=== PATIENT | female | born 1950 | race African-American/Black ===

== ENCOUNTER 2016-03-20 21:24 | Emergency (ER) | payer MEDICARE, OTHER ==
[2016-03-20] MEDS ORDERED: ASPIRIN 81 MG TABLET, CHEWABLE PO ONE (21:31)
[2016-03-20] MEDS ORDERED: DILTIAZEM HCL/D5W 125 MG/125 ML RTUINJ IV ONE (21:53)
[2016-03-20] MEDS ORDERED: DILTIAZEM HCL INJ 25 MG/5 ML VIAL ONE (21:54)
[2016-03-20] MEDS ORDERED: DILTIAZEM HCL INJ 25 MG/5 ML VIAL IV ONE (22:06)
[2016-03-20] MEDS ORDERED: DILTIAZEM HCL/D5W 125 ML IV PRN (22:06)
[2016-03-20 22:15] LABS: ABSOLUTE BASOPHILS # (AUTO) 0.1 10^3/uL (0.0-0.2); ABSOLUTE EOSINOPHILS # (AUTO) 0.2 10^3/uL (0.0-0.6); ABSOLUTE LYMPHOCYTES (AUTO) 2.8 10^3/uL (0.5-4.7); ABSOLUTE NEUT (AUTO) 6.3 10^3/uL (1.7-8.2); BASOPHILS % (AUTO) 0.7 % (0-2); HEMOGLOBIN 12.7 g/dL (12.0-15.5); HGB HCT DIFFERENCE -1.9; LYMPHOCYTES % (AUTO) 26.7 % (13-45); MEAN CORPUSCULAR HEMOGLOBIN 28.9 pg (27.0-33.4); MEAN CORPUSCULAR HGB CONC 31.7 g/dL (32.0-36.0); MEAN CORPUSCULAR VOLUME 91 fl (80-97); MONOCYTES % (AUTO) 9.7 % (3-13); RED BLOOD COUNT 4.39 10^6/uL (3.72-5.28); RED CELL DISTRIBUTION WIDTH 15.6 % (11.5-14.0); SEGMENTED NEUTROPHILS % (AUTO) 60.9 % (42-78); WHITE BLOOD COUNT 10.4 10^3/uL (4.0-10.5)
[2016-03-20 23:06] LABS: PROTHROMBIN TIME 16.2 SEC (11.4-15.4)
[2016-03-20 23:07] LABS: PARTIAL THROMBOPLASTIN TIME 50.6 SEC (23.5-35.8)
[2016-03-20] MEDS ORDERED: METHYLPREDNISOLONE INJ 125 MG/2 ML SDV IV ONE (23:17)
[2016-03-20] MEDS ORDERED: DIPHENHYDRAMINE HCL 50 MG/ML VIAL IV ONE (23:17)
[2016-03-20] MEDS ORDERED: FAMOTIDINE INJ/PF 20 MG/2 ML SDV IV ONE (23:17)
[2016-03-20 23:26] LABS: ALANINE AMINOTRANSFERASE 19 U/L (9-52); ALBUMIN 4.1 g/dL (3.5-5.0); ALKALINE PHOSPHATASE 93 U/L (38-126); ANION GAP 14 (5-19); ASPARTATE AMINO TRANSFERASE 16 U/L (14-36); BILIRUBIN,TOTAL 0.5 mg/dL (0.2-1.3); BLOOD UREA NITROGEN 29 mg/dL (7-20); CALCIUM 9.9 mg/dL (8.4-10.2); CARBON DIOXIDE 23 mmol/L (22-30); CHLORIDE 110 mmol/L (98-107); CREATINE KINASE 115 U/L (30-135); CREATININE RESULT 1.15 mg/dL (0.52-1.25); GLUCOSE 111 mg/dL (75-110); MAGNESIUM 2.1 mg/dL (1.6-2.3); POTASSIUM 3.7 mmol/L (3.6-5.0); SODIUM 147.3 mmol/L (137-145); TOTAL PROTEIN 7.2 g/dL (6.3-8.2)
[2016-03-20 23:34] LABS: CREATINE KINASE MB 0.87 ng/mL (<4.55)
[2016-03-20 23:35] LABS: TROPONIN I < 0.012 ng/mL
--- NOTE | 2016-03-21 00:39 | ER Document Report ---
ED General - General TRAVEL OUTSIDE OF THE [place] IN LAST 30 DAYS: No - HPI Patient complains to provider of: chest pressure pain palpitation <JAYDON LIZ - Last Filed: 03/21/16 01:04> <BOAZ POON - Last Filed: 03/21/16 05:59> - General Chief Complaint: Chest Pressure Stated Complaint: CHEST PAIN - HPI Notes: Patient coming in for evaluation of chest pressure pain palpitations. Patient states started earlier this evening patient states she has been compliant with her medications. Is on metoprolol for her history of A. fib and also improved access for anticoagulation. Patient denies any trauma. Patient has a history of thoracic aortic aneurysm with dissection with endovascular repair in 2013 at [facility]. Patient denies any trauma nausea vomiting fevers chills cough. Patient states chest pressure is worse with ambulation (JAYDON LIZ) - Related Data Allergies/Adverse Reactions: iodine [Iodine] Allergy (Verified 03/20/16 22:40) Past Medical History - Social History Smoking Status: Unknown if Ever Smoked Family History: None - Past Medical History Cardiac Medical History: Reports: Hx Atrial Fibrillation, Hx Hypercholesterolemia, Hx Hypertension Psychiatric Medical History: Reports: Hx Depression Past Surgical History: Reports: Hx Appendectomy, Hx Cardiac Surgery - aorta repair, Hx Hysterectomy, Hx Neurologic Surgery - Right-sided craniotomy for cerebral aneurysm 4 years ago at [facility], Hx Orthopedic Surgery - Right ulnar nerve repair at the elbow, Hx Tubal Ligation, Hx Vascular Surgery - Right temporal craniotomy for cerebral aneurysm at [facility] 4 years ago - Immunizations Hx Diphtheria, Pertussis, Tetanus Vaccination: Yes Hx Pneumococcal Vaccination: 12/27/12 <JAYDON LIZ - Last Filed: 03/21/16 01:04> Review of Systems - Review of Systems Constitutional: No symptoms reported EENT: No symptoms reported Cardiovascular: Chest pain, Palpitations Respiratory: No symptoms reported Gastrointestinal: No symptoms reported Genitourinary: No symptoms reported Female Genitourinary: No symptoms reported Musculoskeletal: No symptoms reported Skin: No symptoms reported Hematologic/Lymphatic: No symptoms reported Neurological/Psychological: No symptoms reported -: Yes All other systems reviewed and negative <JAYDON LIZ - Last Filed: 03/21/16 01:04> Physical Exam - Vital signs Interpretation: Tachycardic - General General appearance: Appears well, Alert - HEENT Head: Normocephalic, Atraumatic Eyes: Normal Pupils: PERRL - Respiratory Respiratory status: No respiratory distress Chest status: Tender - Patient with a keloid scar from previous sternotomy tender to palpation no signs of infection. Breath sounds: Normal Chest palpation: Normal - Cardiovascular Rhythm: Irregularly irregular, Tachycardia Heart sounds: Normal auscultation Murmur: No - Abdominal Inspection: Normal Distension: No distension Bowel sounds: Normal Tenderness: Nontender Organomegaly: No organomegaly - Back Back: Normal, Nontender - Extremities General upper extremity: Normal inspection, Nontender, Normal color, Normal ROM , Normal temperature General lower extremity: Normal inspection, Nontender, Normal color, Normal ROM , Normal temperature, Normal weight bearing. No: Shital's sign - Neurological Neuro grossly intact: Yes Cognition: Normal Orientation: AAOx4 Simona Coma Scale Eye Opening: Spontaneous Fisher Coma Scale Verbal: Oriented Simona Coma Scale Motor: Obeys Commands Simona Coma Scale Total: 15 Speech: Normal Motor strength normal: LUE, RUE, LLE, RLE Sensory: Normal - Psychological Associated symptoms: Normal affect, Normal mood - Skin Skin Temperature: Warm Skin Moisture: Dry Skin Color: Normal <JAYDON LIZ - Last Filed: 03/21/16 01:04> Course - Laboratory Result Diagrams: 03/20/16 21:57 03/20/16 22:30 <JAYDON LIZ - Last Filed: 03/21/16 01:04> - Laboratory Result Diagrams: 03/20/16 21:57 03/20/16 22:30 <BOAZ POON DOROTHY - Last Filed: 03/21/16 05:59> - Re-evaluation Re-evalutation: 03/21/16 00:37 Patient with a mass seen her chest x-ray. 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 I did contact the [facility] transfer team. Patient's lab work does shows some hypernatremia more likely from dehydration. Patient was placed on Cardizem drip with improvement of her A. fib with RVR. Currently waiting operational intelligence officer from [facility]. Otherwise hemodynamics stable at this time. 03/21/16 00:41 Discussed with cardiothoracic surgery at [facility] states this is a vascular surgery issue waiting for vascular surgery consult 03/21/16 01:04 Discussed with fast with surgery at this time do not think that this is a vascular issue but will evaluate the patient in the ER. Discussed with ER attending Dr. Cervantes who accepted the patient to [facility] ER. (JAYDON LIZ) 03/21/16 05:58 Symptoms care of patient at 01:15 Patient is resting comfortably at this time. Vitals are stable. Patient is still awaiting transport to [facility]. There are no ambulances available at this time. Care transferred to Dr. Newman at 0600. (BOAZ POON) - Vital Signs Vital signs: Temp Pulse Resp BP Pulse Ox 18 126/80 H 93 03/21/16 03:04 03/21/16 03:04 03/21/16 03:04 (JAYDON LIZ) (BOAZ POON) - Laboratory Laboratory results interpreted by me: 03/20/16 03/20/16 03/20/16 21:57 21:57 22:30 MCHC 31.7 L RDW 15.6 H PT 16.2 H APTT 50.6 H Sodium 147.3 H Chloride 110 H BUN 29 H Est GFR ( Amer) 57 L Est GFR (Non-Af Amer) 47 L Glucose 111 H (JAYDON LIZ) (BOAZ POON) Critical Care Note - Critical Care Note Total time excluding time spent on procedures (mins): 50 <JAYDON LIZ - Last Filed: 03/21/16 01:04> <BOAZ POON - Last Filed: 03/21/16 05:59> - Critical Care Note Comments: Multiple evaluations for patient with A. fib RVR with a pseudoaneurysm of the thoracic aorta (JAYDON LIZ) Discharge <JAYDON LIZ - Last Filed: 03/21/16 01:04> <BOAZ POON - Last Filed: 03/21/16 05:59> - Discharge Clinical Impression: Atrial fibrillation with RVR, pseudoaneurysm thoracic aorta Disposition: [facility]BLY Referrals: CLAUDIA LUONG MD [Primary Care Provider] - Follow up as needed
--- NOTE | 2016-03-21 08:30 | ER Document Report ---
Doctor's Note Notes: 03/21/16 08:30 Transport is here to take the patient to [facility]. Her vital signs have been stable and she has no complaints at this time.
[2016-03-21 08:33] VITALS: BP 149/76
--- NOTE | 2016-03-21 10:55 | EKG REPORT ---
SEVERITY:- ABNORMAL ECG - ATRIAL FIBRILLATION WITH RAPID V-RATE 150 BPM PROBABLE LVH WITH SECONDARY REPOL ABNRM : Confirmed by: Tono Mcdonough MD 21-Mar-2016 10:54:26
== END 2016-03-21 08:35 | disposition short-term general hospital (02) ==
LOC: ER 21:24
DX: I71.2 Thoracic aortic aneurysm, without rupture (principal); R07.9 Chest pain, unspecified; I48.91 Unspecified atrial fibrillation; E78.00 Pure hypercholesterolemia, unspecified; I10 Essential (primary) hypertension; Z90.710 Acquired absence of both cervix and uterus; Z98.51 Tubal ligation status
CPT/HCPCS: 93005; 99291; 96375; 96365; 96366; 36415; 82553; 82550; 83735; 85025; 85610; 85730; 80053; 84484; 71020; 71275; 74174; 93010; J1200; J3490 ×2; J2930; S0028

== ENCOUNTER 2016-05-14 01:17 | Emergency (ER) | payer MEDICARE, OTHER ==
[2016-05-14] MEDS ORDERED: DILTIAZEM HCL INJ 25 MG/5 ML VIAL IV ONE (01:56)
--- NOTE | 2016-05-14 01:58 | ER Document Report ---
ED General - General Chief Complaint: A-Fib Stated Complaint: CHEST PAIN Time seen by provider: 01:38 Mode of Arrival: Ambulatory Information source: Patient TRAVEL OUTSIDE OF THE [place] IN LAST 30 DAYS: No - HPI Notes: Patient has a long-standing history of atrial fibrillation and a previous history of a thoracic aortic dissection with endovascular repair in 2013 at [facility]. 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 Patient was sent back to [facility], and they decided upon medical management with blood pressure medications with possible surgery in another 6 months. Patient presents now with report of her recurrence of her atrial fibrillation at about 2300 this evening with typical palpitation sensation with mild chest pain. She denies any nausea or dyspnea. She arrives with a slightly elevated blood pressure ambulatory. Patient states that she ran out of her metoprolol, and has not had a dose since yesterday. She thinks she was taking 100 mg by mouth twice a day. She did not bring the medication in with her. Patient reports her thyroid levels were checked recently and were normal. - Related Data Allergies/Adverse Reactions: iodine [Iodine] Allergy (Verified 03/21/16 07:50) Past Medical History - Social History Smoking Status: Former Smoker Family History: None Patient has suicidal ideation: No Patient has homicidal ideation: No - Past Medical History Cardiac Medical History: Reports: Hx Atrial Fibrillation, Hx Hypercholesterolemia, Hx Hypertension Renal/ Medical History: Denies: Hx Peritoneal Dialysis Psychiatric Medical History: Reports: Hx Depression Past Surgical History: Reports: Hx Appendectomy, Hx Cardiac Surgery - aorta repair, Hx Hysterectomy, Hx Neurologic Surgery - Right-sided craniotomy for cerebral aneurysm 4 years ago at [facility], Hx Orthopedic Surgery - Right ulnar nerve repair at the elbow, Hx Tubal Ligation, Hx Vascular Surgery - Right temporal craniotomy for cerebral aneurysm at [facility] 4 years ago - Immunizations Hx Diphtheria, Pertussis, Tetanus Vaccination: Yes Hx Pneumococcal Vaccination: 12/27/12 Review of Systems - Review of Systems Notes: REVIEW OF SYSTEMS: CONSTITUTIONAL : Denies fever, chills, or sweats. Denies recent illness. EENT: Denies eye, ear, throat, or mouth pain or symptoms. Denies nasal or sinus congestion or discharge. Denies throat, tongue, or mouth swelling or difficulty swallowing. CARDIOVASCULAR: Denies ankle edema. RESPIRATORY: Denies cough, cold, or chest congestion. Denies shortness of breath, difficulty breathing, or wheezing. GASTROINTESTINAL: Denies abdominal pain or distention. Denies nausea, vomiting , or diarrhea. Denies blood in vomitus, stools, or per rectum. Denies black, tarry stools. Denies constipation. GENITOURINARY: Denies difficulty urinating, painful urination, burning, frequency, blood in urine, or discharge. FEMALE GENITOURINARY: Denies vaginal bleeding, heavy or abnormal periods, irregular periods. Denies vaginal discharge or odor. MUSCULOSKELETAL: Denies back or neck pain or stiffness. Denies joint pain or swelling. SKIN: Denies rash, lesions or sores. HEMATOLOGIC : Denies easy bruising or bleeding. LYMPHATIC: Denies swollen, enlarged glands. NEUROLOGICAL: Denies confusion or altered mental status. Denies passing out or loss of consciousness. Denies dizziness or lightheadedness. Denies headache. Denies weakness or paralysis or loss of use of either side. Denies problems with gait or speech. Denies sensory loss, numbness, or tingling. Denies seizures. PSYCHIATRIC: Denies anxiety or stress. Denies depression, suicidal ideation, or homicidal ideation. ALL OTHER SYSTEMS REVIEWED AND NEGATIVE. Dictation was performed using [employer] voice recognition software Physical Exam - Vital signs Vitals: Temp Pulse Resp BP Pulse Ox 97.8 F 143 H 16 151/90 H 95 05/14/16 01:27 05/14/16 01:27 05/14/16 01:27 05/14/16 01:27 05/14/16 01:27 - Notes Notes: PHYSICAL EXAMINATION: GENERAL: Well-appearing, well-nourished and in no acute distress. HEAD: Atraumatic, normocephalic. EYES: Pupils equal round and reactive to light, extraocular movements intact, conjunctiva are normal. ENT: Nares patent, oropharynx clear without exudates. Moist mucous membranes. NECK: Normal range of motion, supple without lymphadenopathy LUNGS: Breath sounds clear to auscultation bilaterally and equal. No wheezes rales or rhonchi. HEART: Tachycardic rate of 146 slightly irregular with atrial fibrillation noted on the monitor. There is a 1/6 systolic ejection murmur best auscultated over the apex. No appreciable gallop or rub. ABDOMEN: Soft, nontender, nondistended abdomen. No guarding, no rebound. No masses appreciated. Female : deferred Musculoskeletal: Normal range of motion, no pitting or edema. No cyanosis. NEUROLOGICAL: Cranial nerves grossly intact. Normal speech, normal gait. Normal sensory, motor exams PSYCH: Normal mood, normal affect. SKIN: Warm, Dry, normal turgor, no rashes or lesions noted. Course - Re-evaluation Re-evalutation: 05/14/16 05:14 Patient was given diltiazem 20 mg IV. Her heart rate came down briefly but she remained in atrial fibrillation. Blood pressure remained stable. After this, the patient was given diltiazem drip at 10 mg IV per hour and was given her usual dose of metoprolol 100 mg by mouth. Within 30 minutes, the patient resumed back into normal sinus rhythm with a heart rate 60s to 80s and a stable blood pressure. The diltiazem was discontinued. The patient was watched for an additional 2 hours and had no sensation of palpitations or chest pain whatsoever. Repeat EKG performed at 0 4:53 AM as interpreted by Dr. Smalls showed normal sinus rhythm heart rate of 65. There is no gross evidence for acute IA or ischemia. There was resolution of the previously noted atrial fibrillation. Patient was ambulatory without complaint. No evidence for CHF, cardiac ischemia, electrolyte imbalance, anemia. We will refill the patient's dose of metoprolol, and she now states she takes a total of 100 mg a day but thinks it's broken up in the 2 x 50 mg tablets taken twice a day. 05/14/16 05:21 - Vital Signs Vital signs: Temp Pulse Resp BP Pulse Ox 97.8 F 143 H 17 124/67 100 05/14/16 01:27 05/14/16 01:27 05/14/16 05:00 05/14/16 04:56 05/14/16 05:00 - Laboratory Result Diagrams: 05/14/16 01:47 05/14/16 01:47 Laboratory results interpreted by me: 05/14/16 05/14/16 05/14/16 01:47 01:47 01:47 RDW 16.5 H PT 19.4 H Sodium 148.7 H Chloride 110 H BUN 24 H Est GFR (Non-Af Amer) 52 L Glucose 113 H AST 52 H Total Protein 8.3 H - Diagnostic Test Radiology reviewed: Reports reviewed - EKG Interpretation by Me Additional EKG results interpreted by me: 05/14/16 02:03 Initial EKG performed at 0 123 as interpreted by me showed atrial flutter with a 2-1 block rate of 142. There is 1 isolated PVC noted on the rhythm strip. There was no gross evidence for acute IA or ischemia, with rate-related ST segment changes noted. This EKG was not significantly changed from previous EKG were reviewed and old record from 03/20/16. Critical Care Note - Critical Care Note Total time excluding time spent on procedures (mins): 35 Discharge - Discharge Clinical Impression: Atrial fibrillation with RVR Chest pain Qualifiers: Chest pain type: unspecified Qualified Code(s): R07.9 - Chest pain, unspecified Condition: Stable Disposition: HOME, SELF-CARE Additional Instructions: Atrial Fibrillation Atrial fibrillation is an abnormal heart rhythm, caused by irregular electrical circuits in the upper heart chamber. It can be caused by heart valve disease, hardening of the arteries, or metabolic problems such as thyroid disease, or may occur without a clear cause. Atrial fibrillation may occur only occasionally, or may be chronic. Atrial fibrillation often results in a very fast heart rate, with palpitations, lightheadedness, and shortness of breath. Treatment is to slow the abnormally fast rate, and to convert the rhythm back to normal, if possible. Many patients stay in atrial fibrillation for years without symptoms or complications. Your doctor will decide whether you can be converted back to a normal heart rhythm. Contact the doctor or emergency medical system at once if you develop chest pain, shortness of breath, or severe lightheadedness, or if you develop any disturbance of consciousness, problems with speech, or localized weakness. Take your metoprolol regularly as instructed. Return to the emergency Department in case of chest pain or difficulty breathing or rapid heart rate. Prescriptions: Metoprolol Tartrate [Lopressor 50 mg Tablet] 50 mg PO Q12H #60 tablet
[2016-05-14 02:18] LABS: ABSOLUTE EOSINOPHILS # (AUTO) 0.3 10^3/uL (0.0-0.6); ABSOLUTE LYMPHOCYTES (AUTO) 1.7 10^3/uL (0.5-4.7); ABSOLUTE NEUT (AUTO) 7.1 10^3/uL (1.7-8.2); BASOPHILS % (AUTO) 0.5 % (0-2); HEMATOCRIT 40.5 % (36.0-47.0); HEMOGLOBIN 13.5 g/dL (12.0-15.5); LYMPHOCYTES % (AUTO) 16.8 % (13-45); MEAN CORPUSCULAR HEMOGLOBIN 30.1 pg (27.0-33.4); MEAN CORPUSCULAR HGB CONC 33.3 g/dL (32.0-36.0); MEAN CORPUSCULAR VOLUME 90 fl (80-97); MONOCYTES % (AUTO) 10.2 % (3-13); RED BLOOD COUNT 4.48 10^6/uL (3.72-5.28); RED CELL DISTRIBUTION WIDTH 16.5 % (11.5-14.0); SEGMENTED NEUTROPHILS % (AUTO) 69.5 % (42-78); WHITE BLOOD COUNT 10.3 10^3/uL (4.0-10.5)
[2016-05-14] MEDS ORDERED: METOPROLOL TARTRATE 100 MG TABLET PO ONE (02:19)
[2016-05-14] MEDS ORDERED: DILTIAZEM HCL/D5W 125 ML IV PRN (02:20)
[2016-05-14 02:23] LABS: ALANINE AMINOTRANSFERASE 39 U/L (9-52); ALBUMIN 4.4 g/dL (3.5-5.0); ALKALINE PHOSPHATASE 107 U/L (38-126); ANION GAP 13 (5-19); ASPARTATE AMINO TRANSFERASE 52 U/L (14-36); BILIRUBIN,TOTAL 0.7 mg/dL (0.2-1.3); BLOOD UREA NITROGEN 24 mg/dL (7-20); CALCIUM 9.9 mg/dL (8.4-10.2); CARBON DIOXIDE 26 mmol/L (22-30); CHLORIDE 110 mmol/L (98-107); CREATININE RESULT 1.05 mg/dL (0.52-1.25); GLUCOSE 113 mg/dL (75-110); MAGNESIUM 2.1 mg/dL (1.6-2.3); POTASSIUM 3.6 mmol/L (3.6-5.0); SODIUM 148.7 mmol/L (137-145); TOTAL PROTEIN 8.3 g/dL (6.3-8.2)
[2016-05-14 02:29] LABS: PROTHROMBIN TIME 19.4 SEC (11.4-15.4)
[2016-05-14 07:23] VITALS: BP 114/68
--- NOTE | 2016-05-14 11:12 | EKG REPORT ---
SEVERITY:- ABNORMAL ECG - SINUS RHYTHM FIRST DEGREE AV BLOCK PROBABLE LEFT ATRIAL ABNORMALITY PROBABLE LEFT VENTRICULAR HYPERTROPHY BORDERLINE T ABNORMALITIES, INFERIOR LEADS BORDERLINE PROLONGED QT INTERVAL : Confirmed by: Forrest Chapman 14-May-2016 11:11:40
--- NOTE | 2016-05-14 11:12 | EKG REPORT ---
SEVERITY:- ABNORMAL ECG - A-FLUTTER W/ PREDOM 2:1 AV BLOCK, A-RATE 277 VENTRICULAR PREMATURE COMPLEX CONSIDER LEFT VENTRICULAR HYPERTROPHY REPOL ABNRM SUGGESTS ISCHEMIA, DIFFUSE LEADS PROLONGED QT INTERVAL : Confirmed by: Forrest Chapman 14-May-2016 11:11:48
== END 2016-05-14 07:23 | disposition home or self-care (01) ==
LOC: ER 01:17
DX: I48.91 Unspecified atrial fibrillation (principal); R07.9 Chest pain, unspecified; E78.00 Pure hypercholesterolemia, unspecified; I10 Essential (primary) hypertension; I71.2 Thoracic aortic aneurysm, without rupture; Z87.891 Personal history of nicotine dependence
CPT/HCPCS: 93005; 96376; 99291; 96365; 36415; 83735; 85025; 85610; 80053; 84484; 71010; 93010; J3490 ×2; A9270

== ENCOUNTER 2016-09-06 01:49 | Emergency (ER) | payer MEDICARE, OTHER ==
[2016-09-06] MEDS ORDERED: ASPIRIN 81 MG TABLET, CHEWABLE PO ONE (03:06)
--- NOTE | 2016-09-06 03:12 | ER Document Report ---
ED Cardiac <FELIPA SAMUELS - Last Filed: 09/06/16 09:58> - General Mode of Arrival: Ambulatory Information source: Patient TRAVEL OUTSIDE OF THE [place] IN LAST 30 DAYS: No - HPI Patient complains to provider of: Chest pain - Like someone standing on her Was the onset of pain: Sudden Is the pain a: Chronic problem - Patient states she has atrial fib but this pain is different than her normal pain from felt like someone was standing on her chest Quality of pain: Pressure, Radiating - Bilateral arms, Tingling - Bilateral arms Chest pain radiation location: Left arm, Right arm Severity now: Moderate Severity at worst: Mild Pain level currently: 2 Cardiac risk factors: Hypertension, Dyslipidemia Positive cardiac history: Yes Associated symptoms: Dizziness, Nausea/vomiting Exacerbated by: Denies Relieved by: Nothing Similar symptoms previously: Yes Recently seen / treated by doctor: Yes <BLANCHE STEVENS - Last Filed: 09/06/16 19:21> - General Chief Complaint: Chest Pain Stated Complaint: CHEST PAIN Time Seen by Provider: 09/06/16 02:52 Notes: Presents to ED for chest pain times about 2 hours. She states that she has a history of atrial fib but this did not feel like her normal atrial fib. She said it felt like someone was standing on her chest. She states the pain is much better now it is down to a 2 but she still having some pain. States she has also had some dizziness and nausea but no vomiting. 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 (BLANCHE STEVENS) - Related Data Allergies/Adverse Reactions: iodine [Iodine] Allergy (Verified 03/21/16 07:50) Past Medical History - General Information source: Patient - Social History Smoking Status: Current Every Day Smoker Cigarette use (# per day): Yes - 2-3 per day Chew tobacco use (# tins/day): No Smoking Education Provided: Yes - less than 2 min Frequency of alcohol use: None Drug Abuse: None Occupation: retired Lives with: Family - grandson Family History: Reviewed & Not Pertinent Patient has suicidal ideation: No Patient has homicidal ideation: No - Past Medical History Cardiac Medical History: Reports: Hx Atrial Fibrillation, Hx Hypercholesterolemia, Hx Hypertension, Other - aortic aneurysm with repair Pulmonary Medical History: Reports: Hx Bronchitis EENT Medical History: Reports: None Neurological Medical History: Reports: Hx Cerebrovascular Accident - cerebral aneurysm Endocrine Medical History: Reports: None Renal/ Medical History: Reports: None Malignancy Medical History: Reports: None GI Medical History: Reports: None Musculoskeltal Medical History: Reports Hx Musculoskeletal Deformity Skin Medical History: Reports None Psychiatric Medical History: Reports: Hx Depression Traumatic Medical History: Reports: None Infectious Medical History: Reports: None Past Surgical History: Reports: Hx Appendectomy, Hx Cardiac Surgery - aorta repair, Hx Hysterectomy, Hx Neurologic Surgery - Right-sided craniotomy for cerebral aneurysm 4 years ago at [facility], Hx Orthopedic Surgery - Right ulnar nerve repair at the elbow, Hx Tubal Ligation, Hx Vascular Surgery - Right temporal craniotomy for cerebral aneurysm at [facility] 4 years ago - Immunizations Immunizations up to date: Yes Hx Diphtheria, Pertussis, Tetanus Vaccination: Yes History of Influenza Vaccine for 11/2015 - 04/2016 Season: Yes Hx Pneumococcal Vaccination: 12/27/12 <BLANCHE STEVENS - Last Filed: 09/06/16 19:21> Review of Systems - Review of Systems Constitutional: No symptoms reported EENT: No symptoms reported Cardiovascular: Chest pain, Dizziness Respiratory: No symptoms reported Gastrointestinal: Nausea Genitourinary: No symptoms reported Female Genitourinary: No symptoms reported Musculoskeletal: No symptoms reported Skin: No symptoms reported Hematologic/Lymphatic: No symptoms reported Neurological/Psychological: No symptoms reported <BLANCHE STEVENS - Last Filed: 09/06/16 19:21> Physical Exam - Vital signs Interpretation: Normal - General General appearance: Appears well, Alert - HEENT Head: Normocephalic, Atraumatic Eyes: Normal Pupils: PERRL - Respiratory Respiratory status: No respiratory distress Chest status: Tender - to area around chest surgery scars from aneursym repair Breath sounds: Normal Chest palpation: Normal - Cardiovascular Rhythm: Regular Heart sounds: Normal auscultation Murmur: No - Abdominal Inspection: Normal Distension: No distension Bowel sounds: Normal Tenderness: Tender - upper abdomen Organomegaly: No organomegaly - Back Back: Normal, Nontender - Extremities General upper extremity: Normal inspection, Nontender, Normal color, Normal ROM , Normal temperature General lower extremity: Normal inspection, Nontender, Normal color, Normal ROM , Normal temperature, Normal weight bearing. No: Shital's sign - Neurological Neuro grossly intact: Yes Cognition: Normal Orientation: AAOx4 [place] Coma Scale Eye Opening: Spontaneous [place] Coma Scale Verbal: Oriented [place] Coma Scale Motor: Obeys Commands [place] Coma Scale Total: 15 Speech: Normal Motor strength normal: LUE, RUE, LLE, RLE Sensory: Normal - Psychological Associated symptoms: Normal affect, Normal mood - Skin Skin Temperature: Warm Skin Moisture: Dry Skin Color: Normal <BLANCHE STEVENS - Last Filed: 09/06/16 19:21> - Vital signs Vitals: Temp Pulse Resp BP Pulse Ox 98.1 F 80 16 154/106 H 96 09/06/16 02:04 09/06/16 02:04 09/06/16 02:04 09/06/16 02:04 09/06/16 02:04 Course - Laboratory Result Diagrams: 09/06/16 03:30 09/06/16 03:30 - Diagnostic Test Radiology reviewed: Reports reviewed <FELIPA SAMUELS - Last Filed: 09/06/16 09:58> - Laboratory Result Diagrams: 09/06/16 03:30 09/06/16 03:30 - Diagnostic Test Radiology reviewed: Image reviewed, Reports reviewed <BLANCHE STEVENS - Last Filed: 09/06/16 19:21> - Re-evaluation Re-evalutation: 09/06/16 09:59 Patient resting with eyes closed, arouses easily to voice. Patient states that her pain symptoms are resolved at this time. Patient blood pressure is improving after her morning doses of her medications were given. Patient advised that she will be discharged and that she needs to keep her appointment tomorrow in [place] with her doctor. Discussed worsening signs or symptoms that patient should return immediately for. Patient verbalized understanding and agrees with plan of care. Patient advised that her morning dose of her blood pressure medications were given in that she will only need to take her evening dose at home. (FELIPA SAMUELS) 09/06/16 07:[address] Newman when all the labs and x-rays were resulted he stated he would prefer her have a 1 more troponin at 830 before she was discharged if this is negative she can go home to follow-up with [place] tomorrow as he is scheduled. 09/06/16 08:13 Given to Rosemary Samuels FRAME [employer]IMMER, (BLANCHE STEVENS) - Vital Signs Vital signs: Temp Pulse Resp BP Pulse Ox 98.1 F 80 12 171/88 H 97 09/06/16 02:04 09/06/16 02:04 09/06/16 10:01 09/06/16 10:01 09/06/16 10:00 - Laboratory Laboratory results interpreted by me: 09/06/16 09/06/16 09/06/16 03:30 03:30 03:30 MCHC 31.4 L RDW 14.8 H PT 16.6 H APTT 65.6 H Potassium 3.1 L Est GFR ( Amer) 59 L Est GFR (Non-Af Amer) 49 L AST 93 H ALT 86 H 09/06/16 10:00 (FELIPA SAMUELS) Discharge <FELIPA SAMUELS - Last Filed: 09/06/16 09:58> <BLANCHE STEVENS - Last Filed: 09/06/16 19:21> - Discharge Clinical Impression: Hypokalemia Chest pain Qualifiers: Chest pain type: unspecified Qualified Code(s): R07.9 - Chest pain, unspecified Hypertension Qualifiers: Hypertension type: unspecified Qualified Code(s): I10 - Essential (primary) hypertension Condition: Stable Disposition: HOME, SELF-CARE Instructions: Chest Pain of Unclear Cause ([facility]), Hypokalemia ([facility]) Additional Instructions: You were given your morning dose of your blood pressure medications here. Return immediately for any new or worsening symptoms Followup with your primary care provider, call tomorrow to make a followup appointment Your potassium level was low today, increase foods rich in potassium in your diet. Have your primary care provider recheck your electrolytes this week. CHEST PAIN OF UNCLEAR CAUSE: The exact cause of your chest pain isn't clear. Fortunately, there is no evidence of a dangerous medical condition. Further testing may be required to find the source of the pain. Most often, we find that this pain is coming from the chest wall -- the muscles or rib joints in the chest. But chest pain can come from the lung and lung lining, the esophagus, the heart valves or heart lining, and even the stomach or gallbladder. Rest. Eat lightly until the pain is gone. We may prescribe medicine for pain and inflammation. You should call the physician immediately if the pain radiates to the shoulder, jaw or arms; if you start to run a fever or develop a cough; or if you develop shortness of breath, or other new or alarming symptoms. NORMAL EXAM AND WORKUP: At this time, your examination and workup show no significant abnormality. No significant abnormal physical findings were noted. All laboratory, EKG, and imaging (x-ray, CT scans, ultrasound) studies that were ordered show no significant abnormality. Although your examination and all studies that were ordered showed no significant abnormal finding, there are no examinations and no studies that are 100% accurate. There is always the possibility that some abnormality could exist and not be detected with physical examination or within the limits and capabilities of laboratory and other studies. You should return or follow up as you were instructed on your visit today for further evaluation if your symptoms do not resolve. ASPIRIN: Aspirin has been shown to have a beneficial effect on blood circulation by reducing the clotting effect of platelets in the blood. These beneficial effects can be achieved by taking just a single baby (81 mg) aspirin a day. It is recommended that any person over the age of forty take a single baby aspirin every day for heart and brain circulation, unless you are allergic to aspirin or have some significant bleeding disorder. It is strongly recommended that people who have proven cardiac or blood circulation disturbances should take a baby aspirin every day. FOLLOW-UP CARE: If you have been referred to a physician for follow-up care, call the physician s office for an appointment as you were instructed or within the next two days. If you experience worsening or a significant change in your symptoms, notify the physician immediately or return to the Emergency Department at any time for re-evaluation. Follow-up with your doctor in [place] tomorrow as scheduled. Return to the ED for any chest pain between now and your scheduled appointment. Forms: Elevated Blood Pressure Referrals: CLAUDIA LUONG MD [Primary Care Provider] - Follow up as needed
[2016-09-06 03:39] LABS: ABSOLUTE BASOPHILS # (AUTO) 0.1 10^3/uL (0.0-0.2); ABSOLUTE EOSINOPHILS # (AUTO) 0.1 10^3/uL (0.0-0.6); ABSOLUTE LYMPHOCYTES (AUTO) 1.8 10^3/uL (0.5-4.7); ABSOLUTE MONOCYTES (AUTO) 0.6 10^3/uL (0.1-1.4); ABSOLUTE NEUT (AUTO) 4.7 10^3/uL (1.7-8.2); BASOPHILS % (AUTO) 1.1 % (0-2); EOSINOPHILS % (AUTO) 1.5 % (0-6); HEMATOCRIT 41.8 % (36.0-47.0); HEMOGLOBIN 13.1 g/dL (12.0-15.5); HGB HCT DIFFERENCE -2.5; LYMPHOCYTES % (AUTO) 24.6 % (13-45); MEAN CORPUSCULAR HEMOGLOBIN 29.1 pg (27.0-33.4); MEAN CORPUSCULAR HGB CONC 31.4 g/dL (32.0-36.0); MEAN CORPUSCULAR VOLUME 93 fl (80-97); MONOCYTES % (AUTO) 8.1 % (3-13); RED CELL DISTRIBUTION WIDTH 14.8 % (11.5-14.0); SEGMENTED NEUTROPHILS % (AUTO) 64.7 % (42-78); WHITE BLOOD COUNT 7.2 10^3/uL (4.0-10.5)
[2016-09-06 03:56] LABS: PROTHROMBIN TIME 16.6 SEC (11.4-15.4)
[2016-09-06 03:57] LABS: PARTIAL THROMBOPLASTIN TIME 65.6 SEC (23.5-35.8)
[2016-09-06 04:11] LABS: ALANINE AMINOTRANSFERASE 86 U/L (9-52); ALBUMIN 4.1 g/dL (3.5-5.0); ALKALINE PHOSPHATASE 120 U/L (38-126); ANION GAP 11 (5-19); ASPARTATE AMINO TRANSFERASE 93 U/L (14-36); BILIRUBIN,DIRECT 0.3 mg/dL (0.0-0.4); BILIRUBIN,TOTAL 0.5 mg/dL (0.2-1.3); BLOOD UREA NITROGEN 17 mg/dL (7-20); CALCIUM 9.2 mg/dL (8.4-10.2); CARBON DIOXIDE 29 mmol/L (22-30); CHLORIDE 105 mmol/L (98-107); CREATINE KINASE 120 U/L (30-135); CREATININE RESULT 1.11 mg/dL (0.52-1.25); GLUCOSE 102 mg/dL (75-110); POTASSIUM 3.1 mmol/L (3.6-5.0); TOTAL PROTEIN 7.8 g/dL (6.3-8.2)
[2016-09-06 04:16] LABS: CREATINE KINASE MB 0.46 ng/mL (<4.55); TROPONIN I < 0.012 ng/mL
--- NOTE | 2016-09-06 04:37 | RADIOLOGY REPORT (SQ) ---
EXAM DESCRIPTION: CHEST PA/LAT COMPLETED DATE/TIME: 09/06/2016 4:15 am REASON FOR STUDY: chest pain with numbness down both arms COMPARISON: CR, 03/20/2016. CT, 03/20/2016. EXAM PARAMETERS: NUMBER OF VIEWS: two views TECHNIQUE: Digital Frontal and Lateral radiographic views of the chest acquired. RADIATION DOSE: NA LIMITATIONS: none FINDINGS: LUNGS AND PLEURA: No opacities, masses or pneumothorax. No pleural effusion. MEDIASTINUM AND HILAR STRUCTURES: No masses or contour abnormalities. HEART AND VASCULAR STRUCTURES: Mild cardiac enlargement. Abnormal silhouette of the thoracic aorta i ncluding a known descending aortic pseudoaneurysm without significant interval change compared with p rior exams, 03/20/2016. BONES: No acute findings. HARDWARE: Sternotomy. OTHER: No other significant finding. IMPRESSION: No significant interval change. Known large descending thoracic aortic pseudoaneurysm a s compared with prior CR and CT examinations from 03/20/2016. TECHNICAL DOCUMENTATION: JOB ID: [id number] [employer]- All Rights Reserved
--- NOTE | 2016-09-06 07:53 | EKG REPORT ---
SEVERITY:- ABNORMAL ECG - SINUS RHYTHM PROBABLE LEFT ATRIAL ABNORMALITY PROBABLE LEFT VENTRICULAR HYPERTROPHY BORDERLINE PROLONGED QT INTERVAL : Confirmed by: Tono Mcdonough MD 06-Sep-2016 07:52:57
[2016-09-06] MEDS ORDERED: LISINOPRIL 10 MG TABLET PO ONE (08:12)
[2016-09-06] MEDS ORDERED: AMLODIPINE BESYLATE 10 MG TABLET PO ONE (08:12)
[2016-09-06] MEDS ORDERED: METOPROLOL SUCCINATE 50 MG TAB.SR.24H PO ONE (08:12)
[2016-09-06] MEDS ORDERED: POTASSIUM CHLORIDE 10 MEQ TABLET.SA PO ONE (10:01)
[2016-09-06 10:24] VITALS: BP 171/88
== END 2016-09-06 10:24 | disposition home or self-care (01) ==
LOC: ER 01:49
DX: R07.89 Other chest pain (principal); E87.6 Hypokalemia; R42 Dizziness and giddiness; R20.2 Paresthesia of skin; I10 Essential (primary) hypertension; I48.91 Unspecified atrial fibrillation; R11.0 Nausea; F17.210 Nicotine dependence, cigarettes, uncomplicated; Z79.899 Other long term (current) drug therapy
CPT/HCPCS: 93005; 99285; 36415; 82553; 82550; 85025; 85610; 85730; 80053; 84484; 71020; 93010; A9270 ×5

== ENCOUNTER 2017-01-05 17:32 | Emergency (ER) | payer MEDICARE, OTHER ==
--- NOTE | 2017-01-05 18:46 | ER Document Report ---
ED Medical Screen (RME) - General Chief Complaint: Chest Pain Stated Complaint: CHEST PAIN Time Seen by Provider: 01/05/17 18:43 Notes: Patient states that she was discharged from [facility] this past Wednesday. She states she was in there to have a procedure. She states that her procedure was the repair of a "aneurysm around my heart" by a Dr. Melo who is a vascular surgeon. She states she now "feels bad" has left-sided chest pain going to the left arm, is short of breath, and has some weakness. In review of patient's discharge paperwork no mention of the diagnosis or procedure can be found. TRAVEL OUTSIDE OF THE [place] IN LAST 30 DAYS: No - Related Data Allergies/Adverse Reactions: iodine [Iodine] Allergy (Verified 01/05/17 17:39) Past Medical History - Past Medical History Cardiac Medical History: Reports: Hx Atrial Fibrillation, Hx Hypercholesterolemia, Hx Hypertension Pulmonary Medical History: Reports: Hx Bronchitis Neurological Medical History: Reports: Hx Cerebrovascular Accident - cerebral aneurysm Renal/ Medical History: Denies: Hx Peritoneal Dialysis Musculoskeltal Medical History: Reports Hx Musculoskeletal Deformity Psychiatric Medical History: Reports: Hx Depression Past Surgical History: Reports: Hx Appendectomy, Hx Cardiac Surgery - aorta repair, Hx Hysterectomy, Hx Neurologic Surgery - Right-sided craniotomy for cerebral aneurysm 4 years ago at [facility], Hx Orthopedic Surgery - Right ulnar nerve repair at the elbow, Hx Tubal Ligation, Hx Vascular Surgery - Right temporal craniotomy for cerebral aneurysm at [facility] 4 years ago - Immunizations Immunizations up to date: Yes Hx Diphtheria, Pertussis, Tetanus Vaccination: Yes Physical Exam - Vital signs Vitals: Temp Pulse Resp BP Pulse Ox 98.6 F 81 16 148/62 H 98 01/05/17 17:39 01/05/17 17:39 01/05/17 17:39 01/05/17 17:39 01/05/17 17:39 Course - Vital Signs Vital signs: Temp Pulse Resp BP Pulse Ox 98.6 F 81 16 148/62 H 98 01/05/17 17:39 01/05/17 17:39 01/05/17 17:39 01/05/17 17:39 01/05/17 17:39
--- NOTE | 2017-01-05 19:36 | EKG REPORT ---
SEVERITY:- ABNORMAL ECG - SINUS RHYTHM MULTIPLE PREMATURE COMPLEXES, SUPRAVEN PROBABLE LEFT VENTRICULAR HYPERTROPHY : Confirmed by: Tono Mcdonough MD 05-Jan-2017 19:36:24
[2017-01-05 20:09] LABS: ABSOLUTE BASOPHILS # (AUTO) 0.1 10^3/uL (0.0-0.2); ABSOLUTE EOSINOPHILS # (AUTO) 0.1 10^3/uL (0.0-0.6); ABSOLUTE MONOCYTES (AUTO) 1.5 10^3/uL (0.1-1.4); ABSOLUTE NEUT (AUTO) 6.7 10^3/uL (1.7-8.2); BASOPHILS % (AUTO) 0.5 % (0-2); EOSINOPHILS % (AUTO) 0.8 % (0-6); HEMATOCRIT 35.7 % (36.0-47.0); HEMOGLOBIN 11.9 g/dL (12.0-15.5); LYMPHOCYTES % (AUTO) 19.7 % (13-45); MEAN CORPUSCULAR HEMOGLOBIN 31.4 pg (27.0-33.4); MEAN CORPUSCULAR HGB CONC 33.4 g/dL (32.0-36.0); MEAN CORPUSCULAR VOLUME 94 fl (80-97); MONOCYTES % (AUTO) 14.6 % (3-13); RED CELL DISTRIBUTION WIDTH 15.5 % (11.5-14.0); SEGMENTED NEUTROPHILS % (AUTO) 64.4 % (42-78); WHITE BLOOD COUNT 10.4 10^3/uL (4.0-10.5)
--- NOTE | 2017-01-05 20:20 | RADIOLOGY REPORT (SQ) ---
EXAM DESCRIPTION: CHEST PA/LAT COMPLETED DATE/TIME: 01/05/2017 8:09 pm REASON FOR STUDY: cp COMPARISON: 09/06/2016 EXAM PARAMETERS: NUMBER OF VIEWS: two views TECHNIQUE: Digital Frontal and Lateral radiographic views of the chest acquired. RADIATION DOSE: NA LIMITATIONS: none FINDINGS: LUNGS AND PLEURA: No opacities, masses or pneumothorax. No pleural effusion. MEDIASTINUM AND HILAR STRUCTURES: No masses or contour abnormalities. HEART AND VASCULAR STRUCTURES: The configuration of the heart and mediastinal structures is unchanged . The previously described known descending thoracic aortic pseudoaneurysm is again identified. A v ascular endograft is now all identified at the level of the descending thoracic aorta. BONES: No acute findings. HARDWARE: Patient is status post median sternotomy. OTHER: No other significant finding. IMPRESSION: Vascular endograft is now identified at the level of the descending thoracic aorta. No acute changes. Other findings as noted above TECHNICAL DOCUMENTATION: JOB ID: [id number] [employer]- All Rights Reserved
--- NOTE | 2017-01-05 20:33 | ER Document Report ---
ED Cardiac - General Mode of Arrival: Ambulatory Information source: Patient TRAVEL OUTSIDE OF THE [place] IN LAST 30 DAYS: No - HPI Patient complains to provider of: Chest tightness Associated symptoms: Dizziness <KEN GARCIA - Last Filed: 01/05/17 20:51> <CHANO MCADAMS - Last Filed: 01/05/17 23:17> - General Chief Complaint: Chest Pain Stated Complaint: CHEST PAIN Time Seen by Provider: 01/05/17 18:43 Notes: Patient is a 66 year old female with a history of Afib and aneurysms presents to the emergency department complaining of chest pain. Patient states that she was recently discharged home Wednesday after having vascular surgery around 2016. Patient states that she went out with her grandson today and went to [facility] to use the restroom. Patient states that [facility] and when she bent down, she felt weak and dizzy. Patient describes chest pain as tightness. Patient is currently taking Predaxa. (KEN GARCIA) - Related Data Allergies/Adverse Reactions: iodine [Iodine] Allergy (Verified 01/05/17 17:39) Past Medical History - Social History Smoking Status: Current Some Day Smoker Frequency of alcohol use: None Family History: Reviewed & Not Pertinent Patient has suicidal ideation: No Patient has homicidal ideation: No - Past Medical History Cardiac Medical History: Reports: Hx Atrial Fibrillation, Hx Hypercholesterolemia, Hx Hypertension Pulmonary Medical History: Reports: Hx Bronchitis Neurological Medical History: Reports: Hx Cerebrovascular Accident - cerebral aneurysm Musculoskeltal Medical History: Reports Hx Musculoskeletal Deformity Psychiatric Medical History: Reports: Hx Depression Past Surgical History: Reports: Hx Appendectomy, Hx Hysterectomy, Hx Neurologic Surgery - Right-sided craniotomy for cerebral aneurysm clipped in 2008, Hx Orthopedic Surgery - Right ulnar nerve repair at the elbow, Hx Tubal Ligation, Hx Vascular Surgery - 2014 ascending aortic aneurysm repair., Other - about Dec 30. endovascular stent of a descending thoracic psuedoaneursym - Immunizations Immunizations up to date: Yes Hx Diphtheria, Pertussis, Tetanus Vaccination: Yes Hx Pneumococcal Vaccination: 12/27/12 <KEN GARCIA - Last Filed: 01/05/17 20:51> Review of Systems - Review of Systems Constitutional: See HPI, Weakness EENT: No symptoms reported Cardiovascular: See HPI, Chest pain, Dizziness Respiratory: No symptoms reported Gastrointestinal: No symptoms reported Genitourinary: No symptoms reported Female Genitourinary: No symptoms reported Musculoskeletal: No symptoms reported Skin: No symptoms reported Hematologic/Lymphatic: No symptoms reported Neurological/Psychological: No symptoms reported -: Yes All other systems reviewed and negative <KEN GARCIA - Last Filed: 01/05/17 20:51> Physical Exam - General General appearance: Appears well, Alert In distress: None - HEENT Head: Normocephalic, Atraumatic Eyes: Normal Conjunctiva: Normal Pupils: PERRL - Respiratory Respiratory status: No respiratory distress Chest status: Nontender Breath sounds: Normal - Cardiovascular Rhythm: Irregularly irregular, Tachycardia - Abdominal Inspection: Obese - Back Back: Normal - Extremities General upper extremity: Normal inspection, Normal ROM General lower extremity: Normal inspection, Normal ROM. No: Edema - Neurological Neuro grossly intact: Yes Cognition: Normal Orientation: AAOx4 [place] Coma Scale Eye Opening: Spontaneous [place] Coma Scale Verbal: Oriented [place]ona Coma Scale Motor: Obeys Commands [place] Coma Scale Total: 15 Speech: Normal - Psychological Associated symptoms: Normal affect, Normal mood - Skin Skin Temperature: Warm Skin Moisture: Dry Skin Color: Normal <KEN GARCIA - Last Filed: 01/05/17 20:51> - Vital signs Vitals: Temp Pulse Resp BP Pulse Ox 98.6 F 81 16 148/62 H 98 01/05/17 17:39 01/05/17 17:39 01/05/17 17:39 01/05/17 17:39 01/05/17 17:39 Course - Laboratory Result Diagrams: 01/05/17 19:55 01/05/17 19:55 <KEN GARCIA - Last Filed: 01/05/17 20:51> - Laboratory Result Diagrams: 01/05/17 19:55 01/05/17 21:48 - Diagnostic Test Radiology reviewed: Image reviewed, Reports reviewed - Chest x-ray shows the recent descending thoracic aortic endovascular stent. No other acute changes. - EKG Interpretation by Id EKG shows normal: Sinus rhythm, [place], Intervals, QRS Complexes, ST-T Waves Rate: Normal - 99 Rhythm: NSR, APC's <CHANO MCADAMS - Last Filed: 01/05/17 23:17> - Vital Signs Vital signs: Temp Pulse Resp BP Pulse Ox 98.6 F 81 16 148/62 H 98 01/05/17 17:39 01/05/17 17:39 01/05/17 17:39 01/05/17 17:39 01/05/17 17:39 - Laboratory Laboratory results interpreted by me: 01/05/17 01/05/17 01/05/17 19:55 19:55 21:48 Hgb 11.9 L Hct 35.7 L RDW 15.5 H Monocytes % 14.6 H Absolute Monocytes 1.5 H PT 16.7 H BUN 23 H Est GFR (Non-Af Amer) 51 L Magnesium 2.4 H Direct Bilirubin 0.6 H AST 43 H Discharge <KEN GARCIA - Last Filed: 01/05/17 20:51> <CHANO MCADAMS - Last Filed: 01/05/17 23:17> - Discharge Clinical Impression: Exhaustion Chest pain Qualifiers: Chest pain type: unspecified Qualified Code(s): R07.9 - Chest pain, unspecified Condition: Stable Disposition: HOME, SELF-CARE Additional Instructions: Your symptoms of exhaustion and chest discomfort with palpitations is probably due to overexerting yourself. You were just recently discharged from the hospital. You should continue to rest up and slowly work her way up to the activity levels you had before. Be sure to take all your medications on time. Follow-up with your doctor tomorrow if not feeling better. RETURN TO THE EMERGENCY ROOM IF ANY NEW OR WORSENING SYMPTOMS. Scribe Attestation: 01/05/17 23:15 I personally performed the services described in the documentation, reviewed and edited the documentation which was dictated to the scribe in my presence, and it accurately records my words and actions. (CHANO MCADAMS) Scribe Documentation - Scribe Written by Ramos:: Ramos Gilliam, 01/05/2017 20:50 acting as scribe for :: Trent <KEN GARCIA - Last Filed: 01/05/17 20:51>
[2017-01-05 20:34] LABS: PROTHROMBIN TIME 16.7 SEC (11.4-15.4)
[2017-01-05] MEDS ORDERED: ONDANSETRON HCL INJ/PF 4 MG/2 ML SDV IV ONE (21:47)
[2017-01-05] MEDS ORDERED: MORPHINE SULFATE 10 MG/ML INJ IV ONE (21:47)
[2017-01-05 22:21] LABS: ALANINE AMINOTRANSFERASE 23 U/L (9-52); ALBUMIN 3.8 g/dL (3.5-5.0); ALKALINE PHOSPHATASE 111 U/L (38-126); ANION GAP 10 (5-19); ASPARTATE AMINO TRANSFERASE 43 U/L (14-36); BILIRUBIN,DIRECT 0.6 mg/dL (0.0-0.4); BILIRUBIN,TOTAL 1.2 mg/dL (0.2-1.3); BLOOD UREA NITROGEN 23 mg/dL (7-20); CARBON DIOXIDE 28 mmol/L (22-30); CHLORIDE 107 mmol/L (98-107); CREATINE KINASE 95 U/L (30-135); CREATININE RESULT 1.08 mg/dL (0.52-1.25); GLUCOSE 88 mg/dL (75-110); MAGNESIUM 2.4 mg/dL (1.6-2.3); POTASSIUM 4.3 mmol/L (3.6-5.0); SODIUM 144.7 mmol/L (137-145); TOTAL PROTEIN 7.9 g/dL (6.3-8.2)
[2017-01-05] MEDS ORDERED: ONDANSETRON 4 MG TAB.RAPDIS PO ONE (22:31)
[2017-01-05] MEDS ORDERED: OXYCODONE-ACETAMINOPHEN 5-325 MG TABLET PO ONE (22:31)
[2017-01-05 23:27] VITALS: BP 132/66
== END 2017-01-05 23:10 | disposition home or self-care (01) ==
LOC: ER 17:32
DX: R53.83 Other fatigue (principal); R07.9 Chest pain, unspecified; I48.91 Unspecified atrial fibrillation; E78.00 Pure hypercholesterolemia, unspecified; I10 Essential (primary) hypertension; Z86.73 Personal history of transient ischemic attack (TIA), and cerebral infarction without residual deficits; Z90.710 Acquired absence of both cervix and uterus; Z98.51 Tubal ligation status
CPT/HCPCS: 93005; 99285; 36415; 82550; 83735; 85025; 85610; 80053; 84484; 71020; 93010; A9270 ×2; S0119

== ENCOUNTER 2018-06-30 08:35 | Emergency (ER) | payer MEDICARE, OTHER ==
[2018-06-30] MEDS ORDERED: METHYLPREDNISOLONE INJ 125 MG/2 ML SDV IV ONE (08:58)
[2018-06-30] MEDS ORDERED: DIPHENHYDRAMINE HCL 50 MG/ML VIAL IV ONE (08:58)
[2018-06-30] MEDS ORDERED: FAMOTIDINE INJ/PF 20 MG/2 ML SDV IV ONE (08:58)
[2018-06-30] MEDS ORDERED: EPINEPHRINE INJ/PF 1 MG/1 ML AMPULE SUBCUT ONE (08:59)
[2018-06-30] MEDS ORDERED: TRANEXAMIC ACID INJ/PF 1,000 MG/10 ML SDV IV ONE (08:59)
[2018-06-30] MEDS ORDERED: METOPROLOL TARTRATE 50 MG TABLET PO ONE (10:44)
[2018-06-30 12:15] LABS: HEMATOCRIT 38.5 % (36.0-47.0); HEMOGLOBIN 12.9 g/dL (12.0-15.5); MEAN CORPUSCULAR HEMOGLOBIN 30.3 pg (27.0-33.4); MEAN CORPUSCULAR HGB CONC 33.5 g/dL (32.0-36.0); MEAN CORPUSCULAR VOLUME 90 fl (80-97); PLATELET COUNT 193 10^3/uL (150-450); RED BLOOD COUNT 4.26 10^6/uL (3.72-5.28); RED CELL DISTRIBUTION WIDTH 15.3 % (11.5-14.0); WHITE BLOOD COUNT 13.1 10^3/uL (4.0-10.5)
[2018-06-30 12:32] LABS: ALANINE AMINOTRANSFERASE 15 U/L (9-52); ALBUMIN 4.1 g/dL (3.5-5.0); ALKALINE PHOSPHATASE 98 U/L (38-126); ANION GAP 11 (5-19); ASPARTATE AMINO TRANSFERASE 14 U/L (14-36); BILIRUBIN,DIRECT 0.3 mg/dL (0.0-0.4); BILIRUBIN,TOTAL 0.8 mg/dL (0.2-1.3); BLOOD UREA NITROGEN 13 mg/dL (7-20); CALCIUM 9.9 mg/dL (8.4-10.2); CARBON DIOXIDE 24 mmol/L (22-30); CHLORIDE 108 mmol/L (98-107); GLUCOSE 115 mg/dL (75-110); POTASSIUM 3.3 mmol/L (3.6-5.0); SODIUM 143.4 mmol/L (137-145); TOTAL PROTEIN 7.8 g/dL (6.3-8.2)
[2018-06-30 12:48] LABS: ABSOLUTE LYMPHOCYTES# (MANUAL) 0.5 10^3/uL (0.5-4.7); ABSOLUTE MONOCYTES # (MANUAL) 0.3 10^3/uL (0.1-1.4); ABSOLUTE NEUTROPHILS# (MANUAL) 12.3 10^3/uL (1.7-8.2); BASOPHILS % (MANUAL) 0 % (0-2); EOSINOPHILS % (MANUAL) 0 % (0-6); LYMPHOCYTES % (MANUAL) 4 % (13-45); MONOCYTES % (MANUAL) 2 % (3-13); SEGMENTED NEUTROPHILS % (MAN) 94 % (42-78); TOTAL CELLS COUNTED 100
[2018-06-30 12:49] LABS: ANISOCYTOSIS SLIGHT; OVALOCYTES SLIGHT; PLATELET COMMENT ADEQUATE; POIKILOCYTOSIS SLIGHT
[2018-06-30] MEDS ORDERED: CLOPIDOGREL BISULFATE 75 MG TABLET PO ONE (15:09)
--- NOTE | 2018-06-30 15:31 | ER Document Report ---
Entered by NIELS THOMAS SCRIBE 06/30/18 0858 Acting as scribe for:[facility] DO ED General - General Chief Complaint: Lip Swelling Stated Complaint: LIP SWELLING Time Seen by Provider: 06/30/18 08:44 Primary Care Provider: CLAUDIA LUONG MD [Primary Care Provider] - Follow up as needed Mode of Arrival: Ambulatory Information source: Patient Notes: 68 year old female that presents to the emergency department today with complain ts of lip swelling. Patient states four days ago she developed lip tingling shortly after ant spray was sprayed. Patient states that the tingling seemed to subside x3 days ago but yesterday she developed lip swelling which increased overnight into this morning. Patient is on Lisinopril and has never had lip swelling before. Patient denies any shortness of breath or difficulty swallowing/breathing. Patient mentions that is not willing to accept any blood products as she is a Tenriism. Son disagrees with course of events and states that the tingling started on Wednesday and they sprayed for ants yesterday and the swelling started today. TRAVEL OUTSIDE OF THE [place] IN LAST 30 DAYS: No - Related Data Allergies/Adverse Reactions: iodine [Iodine] Allergy (Verified 06/30/18 08:37) Past Medical History - General Information source: Patient, [facility] Records - Social History Smoking Status: Current Every Day Smoker Cigarette use (# per day): Yes Frequency of alcohol use: None Drug Abuse: None Lives with: Family Family History: Reviewed & Not Pertinent - Past Medical History Cardiac Medical History: Reports: Hx Atrial Fibrillation, Hx Hypercholestero lemia, Hx Hypertension Pulmonary Medical History: Reports: Hx Bronchitis Neurological Medical History: Reports: Hx Cerebrovascular Accident - cerebral aneurysm Musculoskeletal Medical History: Reports Hx Musculoskeletal Deformity Psychiatric Medical History: Reports: Hx Depression Past Surgical History: Reports: Hx Appendectomy, Hx Cardiac Surgery - aorta repair, Hx Hysterectomy, Hx Neurologic Surgery - Right-sided craniotomy for cerebral aneurysm clipped in 2008, Hx Orthopedic Surgery - Right ulnar nerve repair at the elbow, Hx Tubal Ligation, Hx Vascular Surgery - 2014 ascending aortic aneurysm repair., Other - about Dec 30. endovascular stent of a descending thoracic psuedoaneursym - Immunizations Immunizations up to date: Yes Hx Diphtheria, Pertussis, Tetanus Vaccination: Yes Hx Pneumococcal Vaccination: 10/29/13 Review of Systems - Review of Systems Constitutional: No symptoms reported EENT: See HPI, Other - lip swelling. denies: Difficulty swallowing Cardiovascular: No symptoms reported Respiratory: denies: Short of breath Gastrointestinal: No symptoms reported Genitourinary: No symptoms reported Female Genitourinary: No symptoms reported Musculoskeletal: No symptoms reported Skin: No symptoms reported Hematologic/Lymphatic: No symptoms reported Neurological/Psychological: No symptoms reported -: Yes All other systems reviewed and negative Physical Exam - Vital signs Vitals: Temp Pulse Resp BP Pulse Ox 98.8 F 103 H 18 180/103 H 95 06/30/18 08:39 06/30/18 08:39 06/30/18 08:39 06/30/18 08:39 06/30/18 08:39 - Notes Notes: PHYSICAL EXAM GENERAL: Alert, interacts well. No acute distress. HEAD: Normocephalic, atraumatic. EYES: Pupils equal, round, and reactive to light. Extraocular movements intact. ENT: Oral mucosa moist, tongue midline. mallampati score of 4. no tongue swell ing. posterior oropharynx cannot be visualized. Gross lower lip swelling without fluctuance or erythema. Submental space is soft, no evidence of Geronimo's angina. NECK: Full range of motion. Supple. Trachea midline. LUNGS: Clear to auscultation bilaterally, no wheezes, rales, or rhonchi. No respiratory distress. HEART: Regular rate and rhythm. No murmurs, gallops, or rubs. ABDOMEN: Obese. Soft, non-tender. Non-distended. Bowel sounds present in all 4 quadrants. No guarding, rigidity, or rebound. EXTREMITIES: Moves all 4 extremities spontaneously. No edema, radial and dorsalis pedis pulses 2/4 bilaterally. No cyanosis. NEUROLOGICAL: Alert and oriented x3. Normal speech. PSYCH: Normal affect, normal mood. SKIN: Warm and dry. Course - Re-evaluation Re-evalutation: 06/30/18 13:40 Patient has marked swelling of the lower lip, suspect it is related to SHAWANDA inhibitor induced angioedema however this is not certain. No evidence of allergic reaction however given the degree of swelling and the fact that she is a Tenriism and states she will not accept anything blood related I will try using Pepcid, Benadryl, Solu-Medrol as well as epinephrine and patient was also given tranexamic acid. Specifically discussed risks and benefits of receiving FFP versus declining FFP and her status as a Tenriism and patient refuses the FFP. Patient has been rechecked multiple times, I have made an effort to transfer her to [place] in hopes that they will have 1 of the medications that can be used for angioedema that is not blood derived however they have neither ecallantide nor icatibant. I have now make contact with [facility] transfer line and they are going to check to see if they have either of these medications. If they do not have any of the medications patient will likely stay here as nobody else is going to do anything differently than we will. Patient has had very slight improvement to the swelling on her lip on the left- hand side. Patient has had no respiratory distress while being here. 06/30/18 14:49 Dr. Ricardo at [facility] has agreed to accept this patient to her service is an ED to ED transfer however she is concerned about how far away [facility] is from here and requests that I call other hospitals that are closer first to see if they might have this medication. 06/30/18 15:30 [facility] also does not have any of the above listed medications. Patient is now accepted to [facility] as an [facility] ED transfer, patient will be transferred via air due to the risk of her airway closing off at any time. - Vital Signs Vital signs: Temp Pulse Resp BP Pulse Ox 98.8 F 79 24 H 182/96 H 93 06/30/18 08:39 06/30/18 14:51 06/30/18 14:46 06/30/18 14:46 06/30/18 14:46 - Laboratory Result Diagrams: 06/30/18 11:55 06/30/18 11:55 Laboratory results interpreted by me: 06/30/18 06/30/18 11:55 11:55 WBC 13.1 H RDW 15.3 H Seg Neuts % (Manual) 94 H Lymphocytes % (Manual) 4 L Monocytes % (Manual) 2 L Abs Neuts (Manual) 12.3 H Potassium 3.3 L Chloride 108 H Glucose 115 H Discharge - Discharge Clinical Impression: Angioedema Qualifiers: Encounter type: initial encounter Qualified Code(s): T78.3XXA - Angioneurotic edema, initial encounter Condition: Fair Disposition: [place] Referrals: CLAUDIA LUONG MD [Primary Care Provider] - Follow up as needed I personally performed the services described in the documentation, reviewed and edited the documentation which was dictated to the scribe in my presence, and it accurately records my words and actions.
--- NOTE | 2018-06-30 16:26 | ER Document Report ---
Doctor's Note Notes: 06/30/18 16:26 Patient seen and examined prior to transport, sign out given and patient prepped for transport.
[2018-06-30 16:48] VITALS: BP 184/79
--- NOTE | 2018-06-30 23:15 | EKG REPORT ---
SEVERITY:- ABNORMAL ECG - SINUS TACHYCARDIA LEFT ATRIAL ABNORMALITY PROBABLE LEFT VENTRICULAR HYPERTROPHY : Confirmed by: Forrest Chapman 30-Jun-2018 23:14:51
== END 2018-06-30 16:49 | disposition short-term general hospital (02) ==
LOC: ER 08:35
DX: T78.3XXA Angioneurotic edema, initial encounter (principal); I10 Essential (primary) hypertension; Z79.899 Other long term (current) drug therapy; F17.200 Nicotine dependence, unspecified, uncomplicated
CPT/HCPCS: 93005; 99284; 96372; 96374; 96375; 36415; 85025; 80053; 93010; J1200; J0171; J2930; A9270 ×2; S0028; J3490

== ENCOUNTER 2018-07-26 13:42 | Observation (INO) | payer MEDICARE, OTHER ==
[2018-07-26] MEDS ORDERED: ASPIRIN 81 MG TABLET, CHEWABLE PO ONE (14:37)
--- NOTE | 2018-07-26 14:40 | ER Document Report ---
ED Medical Screen (RME) - General Chief Complaint: Shortness Of Breath Stated Complaint: SHORT OF BREATH,COUGH Time Seen by Provider: 07/26/18 14:35 Primary Care Provider: CLAUDIA LUONG MD [Primary Care Provider] - Follow up as needed Mode of Arrival: Ambulatory Information source: Patient Notes: 68-year-old female presents to ED for complaint of chest tenderness and shortness of breath since 10 AM. Son states she had a cardiology appointment and she told him to call to cancel. While he was on the phone with the capacity analyst they asked where she having any pain and she said yes she was having some tenderness and some shortness of breath so the capacity analyst said if she needed to come straight to the emergency room. So the patient came to the emergency room to be evaluated for her chest pain. She is alert oriented respirations regular and unlabored speaking in full sentences. She states she did not want to come in because she ends up getting found out here every time she comes in. I have greeted and performed a rapid initial assessment of this patient. A comprehensive ED assessment and evaluation of the patient, analysis of test results and completion of medical decision making process will be conducted by an additional ED providers. Dictation of this chart was performed using voice recognition software; therefore, there may be some unintended grammatical errors. TRAVEL OUTSIDE OF THE [place] IN LAST 30 DAYS: No - Related Data Allergies/Adverse Reactions: iodine [Iodine] Allergy (Verified 07/26/18 13:46) lisinopril Allergy (Verified 07/26/18 14:31) Past Medical History - Social History Chew tobacco use (# tins/day): No Frequency of alcohol use: Rare Drug Abuse: None - Past Medical History Cardiac Medical History: Reports: Hx Atrial Fibrillation, Hx Hypercholesterolemia, Hx Hypertension Pulmonary Medical History: Reports: Hx Bronchitis Neurological Medical History: Reports: Hx Cerebrovascular Accident - cerebral aneurysm Renal/ Medical History: Denies: Hx Peritoneal Dialysis Musculoskeltal Medical History: Reports Hx Musculoskeletal Deformity Psychiatric Medical History: Reports: Hx Depression Past Surgical History: Reports: Hx Appendectomy, Hx Cardiac Surgery - aorta repair, Hx Hysterectomy, Hx Neurologic Surgery - Right-sided craniotomy for cerebral aneurysm clipped in 2008, Hx Orthopedic Surgery - Right ulnar nerve repair at the elbow, Hx Tubal Ligation, Hx Vascular Surgery - 2014 ascending aortic aneurysm repair., Other - about Dec 30. endovascular stent of a descending thoracic psuedoaneursym - Immunizations Immunizations up to date: Yes Hx Diphtheria, Pertussis, Tetanus Vaccination: Yes Physical Exam - Vital signs Vitals: Temp Pulse Resp BP Pulse Ox 98.3 F 53 L 20 157/66 H 95 07/26/18 13:49 07/26/18 13:49 07/26/18 13:49 07/26/18 13:49 07/26/18 13:49 Course - Vital Signs Vital signs: Temp Pulse Resp BP Pulse Ox 98.3 F 53 L 20 157/66 H 95 07/26/18 13:49 07/26/18 13:49 07/26/18 13:49 07/26/18 13:49 07/26/18 13:49 Doctor's Discharge - Discharge Referrals: CLAUDIA LUONG MD [Primary Care Provider] - Follow up as needed
[2018-07-26 15:24] LABS: ABSOLUTE BASOPHILS # (AUTO) 0.1 10^3/uL (0.0-0.2); ABSOLUTE EOSINOPHILS # (AUTO) 0.2 10^3/uL (0.0-0.6); ABSOLUTE LYMPHOCYTES (AUTO) 2.5 10^3/uL (0.5-4.7); ABSOLUTE MONOCYTES (AUTO) 0.8 10^3/uL (0.1-1.4); ABSOLUTE NEUT (AUTO) 4.5 10^3/uL (1.7-8.2); BASOPHILS % (AUTO) 0.9 % (0-2); EOSINOPHILS % (AUTO) 2.2 % (0-6); HEMATOCRIT 38.9 % (36.0-47.0); HEMOGLOBIN 12.6 g/dL (12.0-15.5); LYMPHOCYTES % (AUTO) 31.1 % (13-45); MEAN CORPUSCULAR HGB CONC 32.3 g/dL (32.0-36.0); MEAN CORPUSCULAR VOLUME 93 fl (80-97); MONOCYTES % (AUTO) 9.8 % (3-13); PLATELET COUNT 254 10^3/uL (150-450); RED BLOOD COUNT 4.19 10^6/uL (3.72-5.28); RED CELL DISTRIBUTION WIDTH 17.6 % (11.5-14.0); TOTAL CELLS COUNTED % (AUTO) 100 %; WHITE BLOOD COUNT 7.9 10^3/uL (4.0-10.5)
[2018-07-26 15:39] LABS: APPEARANCE,URINE SLIGHTLY-CLOUDY; BILIRUBIN,URINE NEGATIVE (NEGATIVE); COLOR,URINE YELLOW; GLUCOSE, URINE NEGATIVE (NEGATIVE); KETONES,URINE NEGATIVE (NEGATIVE); LEUKOCYTE ESTERASE,URINE SMALL (NEGATIVE); NITRITE,URINE NEGATIVE (NEGATIVE); PROTEIN,URINE NEGATIVE (NEGATIVE); URINE SPECIFIC GRAVITY 1.027; UROBILINOGEN,URINE NEGATIVE mg/dL (<2.0)
[2018-07-26 15:46] LABS: ALANINE AMINOTRANSFERASE 15 U/L (9-52); ALBUMIN 4.2 g/dL (3.5-5.0); ALKALINE PHOSPHATASE 97 U/L (38-126); ANION GAP 11 (5-19); ASPARTATE AMINO TRANSFERASE 15 U/L (14-36); BILIRUBIN,DIRECT 0.3 mg/dL (0.0-0.4); BILIRUBIN,TOTAL 0.7 mg/dL (0.2-1.3); BLOOD UREA NITROGEN 26 mg/dL (7-20); CALCIUM 9.3 mg/dL (8.4-10.2); CARBON DIOXIDE 23 mmol/L (22-30); CHLORIDE 110 mmol/L (98-107); GLUCOSE 88 mg/dL (75-110); POTASSIUM 4.8 mmol/L (3.6-5.0); TOTAL PROTEIN 7.5 g/dL (6.3-8.2)
[2018-07-26 15:58] LABS: CREATINE KINASE MB 0.27 ng/mL (<4.55); TROPONIN I < 0.012 ng/mL
--- NOTE | 2018-07-26 16:09 | RADIOLOGY REPORT (SQ) ---
EXAM DESCRIPTION: CHEST 2 VIEWS COMPLETED DATE/TIME: 07/26/2018 3:48 pm REASON FOR STUDY: chest pain COMPARISON: 01/05/2017 EXAM PARAMETERS: NUMBER OF VIEWS: two views TECHNIQUE: Digital Frontal and Lateral radiographic views of the chest acquired. RADIATION DOSE: NA LIMITATIONS: none FINDINGS: LUNGS AND PLEURA: No opacities, masses or pneumothorax. No pleural effusion. MEDIASTINUM AND HILAR STRUCTURES: Aortic aneurysm with descending aortic endograft. HEART AND VASCULAR STRUCTURES: Heart normal size. No evidence for failure. BONES: No acute findings. HARDWARE: Sternotomy wires. Endograft. OTHER: No other significant finding. IMPRESSION: NO ACUTE RADIOGRAPHIC FINDING IN THE CHEST. TECHNICAL DOCUMENTATION: JOB ID: [id number] [employer]- All Rights Reserved Reading location - IP/workstation name: [email or web address]
--- NOTE | 2018-07-26 16:26 | ER Document Report ---
ED General - General Chief Complaint: Shortness Of Breath Stated Complaint: SHORT OF BREATH,COUGH Time Seen by Provider: 07/26/18 14:35 Primary Care Provider: CLAUDIA LUONG MD [Primary Care Provider] - Follow up as needed Mode of Arrival: Ambulatory Notes: Patient is a 68-year-old female with history of CAD, hypertension that presents to the emergency department for chief complaint of chest pain. The patient reports that the pain started earlier today. The currently rate the pain as 0 out of 10, and described as chest heaviness and discomfort earlier today but now resolved. They have had associated nausea and diaphoresis and shortness of breath. Denies any radiation of the pain. Their risk factors for heart disease include CAD, hypertension, 2 prior stents. Past Medical History: CAD, hypertension, COPD Past Surgical History: Aortic valve replacement, PCI with stenting x2 Social History: Admits to smoking cigarettes, denies alcohol or drug use. Family History: Reviewed and noncontributory for presenting illness Allergies: Reviewed, see documented allergy list. REVIEW OF SYSTEMS: Other than noted above, the 12 point review of systems was reviewed with the patient and were negative, all pertinent findings are included in the HPI. PHYSICAL EXAMINATION: Vital signs reviewed, nursing noted reviewed. GENERAL: Well-appearing, well-nourished and in no acute distress. HEAD: Atraumatic, normocephalic. EYES: Eyes appear normal, extraocular movements intact, sclera anicteric, conjunctiva are normal. ENT: nares patent, oropharynx clear without exudates. Moist mucous membranes. NECK: Normal range of motion, supple without lymphadenopathy LUNGS: Breath sounds clear to auscultation bilaterally and equal. No wheezes rales or rhonchi. HEART: Regular rate and rhythm without murmurs ABDOMEN: Soft, nontender, normoactive bowel sounds. No rebound, guarding, or rigidity. No masses appreciated. EXTREMITIES: Nontender, good range of motion, no pitting or edema. NEUROLOGICAL: No focal neurological deficits. Moves all extremities spontaneously Motor and sensory grossly intact on exam. PSYCH: Normal mood, normal affect. SKIN: Warm, Dry, normal turgor, no rashes or lesions noted on exposed skin TRAVEL OUTSIDE OF THE [place] IN LAST 30 DAYS: No - Related Data Allergies/Adverse Reactions: iodine [Iodine] Allergy (Verified 07/26/18 13:46) lisinopril Allergy (Verified 07/26/18 14:31) Past Medical History - General Information source: Patient - Social History Smoking Status: Current Every Day Smoker Chew tobacco use (# tins/day): No Frequency of alcohol use: Rare Drug Abuse: None Family History: Reviewed & Not Pertinent Patient has suicidal ideation: No Patient has homicidal ideation: No - Past Medical History Cardiac Medical History: Reports: Hx Atrial Fibrillation, Hx Hyperch olesterolemia, Hx Hypertension Pulmonary Medical History: Reports: Hx Bronchitis Neurological Medical History: Reports: Hx Cerebrovascular Accident - cerebral aneurysm Renal/ Medical History: Denies: Hx Peritoneal Dialysis Musculoskeletal Medical History: Reports Hx Musculoskeletal Deformity Psychiatric Medical History: Reports: Hx Depression Past Surgical History: Reports: Hx Appendectomy, Hx Cardiac Surgery - aorta repair, Hx Hysterectomy, Hx Neurologic Surgery - Right-sided craniotomy for cerebral aneurysm clipped in 2008, Hx Orthopedic Surgery - Right ulnar nerve repair at the elbow, Hx Tubal Ligation, Hx Vascular Surgery - 2014 ascending aortic aneurysm repair., Other - about Dec 30. endovascular stent of a descending thoracic psuedoaneursym - Immunizations Immunizations up to date: Yes Hx Diphtheria, Pertussis, Tetanus Vaccination: Yes Hx Pneumococcal Vaccination: 12/27/12 Physical Exam - Vital signs Vitals: Temp Pulse Resp BP Pulse Ox 98.3 F 53 L 20 157/66 H 95 07/26/18 13:49 07/26/18 13:49 07/26/18 13:49 07/26/18 13:49 07/26/18 13:49 Course - Re-evaluation Re-evalutation: Patient seen and examined vital signs reviewed. Laboratory data and imaging were ordered as appropriate for the patient's presenting symptoms and complaint, with consideration of any critical or life threatening conditions that may be associated with their obtained history and exam as noted above. Patient was treated with aspirin Results were reviewed when available and demonstrated negative troponin, nonischemic EKG pattern, chest x-ray negative, blood work otherwise unremarkable The patient was re-evaluated and was stable and chest pain-free Evaluation was most consistent with chest pain, nonspecific, given patient's strong history of CAD, and HPI of diaphoresis, shortness of breath and nausea associate with chest discomfort, I feel the patient should be observed for serial troponin testing Results were discussed with the patient at this point after careful consideration I feel that that patient should be admitted to the hospital. This was discussed with the patient that it is in the best interest for their care to be admitted for further evaluation and management. Patient agreed with this plan of care. A call was placed to the admitted physician, Dr. Michael who graciously accepted the patient onto their service. *Note is created using voice recognition software and may contain spelling, syntax or grammatical errors. Laboratory 07/26/18 07/26/18 07/26/18 14:50 15:10 15:10 WBC 7.9 RBC 4.19 Hgb 12.6 Hct 38.9 MCV 93 MCH 30.0 MCHC 32.3 RDW 17.6 H Plt Count 254 Seg Neutrophils % 56.0 Lymphocytes % 31.1 Monocytes % 9.8 Eosinophils % 2.2 Basophils % 0.9 Absolute Neutrophils 4.5 Absolute Lymphocytes 2.5 Absolute Monocytes 0.8 Absolute Eosinophils 0.2 Absolute Basophils 0.1 Sodium 144.0 Potassium 4.8 Chloride 110 H Carbon Dioxide 23 Anion Gap 11 BUN 26 H Creatinine 1.11 Est GFR ( Amer) 59 L Est GFR (Non-Af Amer) 49 L Glucose 88 Calcium 9.3 Total Bilirubin 0.7 Direct Bilirubin 0.3 Neonat Total Bilirubin Not Reportable Neonat Direct Bilirubin Not Reportable Neonat Indirect Bili Not Reportable AST 15 ALT 15 Alkaline Phosphatase 97 CK-MB (CK-2) Troponin I Total Protein 7.5 Albumin 4.2 Urine Color YELLOW Urine Appearance SLIGHTLY-CLOUDY Urine pH 5.0 Ur Specific [place] 1.027 Urine Protein NEGATIVE Urine Glucose (UA) NEGATIVE Urine Ketones NEGATIVE Urine Blood NEGATIVE Urine Nitrite NEGATIVE Urine Bilirubin NEGATIVE Urine Urobilinogen NEGATIVE Ur Leukocyte Esterase SMALL H Urine WBC (Auto) 5 Urine RBC (Auto) 2 U Hyaline Cast (Auto) 1 Urine Bacteria (Auto) TRACE Squamous Epi Cells Auto 7 Urine Mucus (Auto) RARE Urine Ascorbic Acid 40 H 07/26/18 15:10 WBC RBC Hgb Hct MCV MCH MCHC RDW Plt Count Seg Neutrophils % Lymphocytes % Monocytes % Eosinophils % Basophils % Absolute Neutrophils Absolute Lymphocytes Absolute Monocytes Absolute Eosinophils Absolute Basophils Sodium Potassium Chloride Carbon Dioxide Anion Gap BUN Creatinine Est GFR ( Amer) Est GFR (Non-Af Amer) Glucose Calcium Total Bilirubin Direct Bilirubin Neonat Total Bilirubin Neonat Direct Bilirubin Neonat Indirect Bili AST ALT Alkaline Phosphatase CK-MB (CK-2) 0.27 Troponin I < 0.012 Total Protein Albumin Urine Color Urine Appearance Urine pH Ur Specific [place] Urine Protein Urine Glucose (UA) Urine Ketones Urine Blood Urine Nitrite Urine Bilirubin Urine Urobilinogen Ur Leukocyte Esterase Urine WBC (Auto) Urine RBC (Auto) U Hyaline Cast (Auto) Urine Bacteria (Auto) Squamous Epi Cells Auto Urine Mucus (Auto) Urine Ascorbic Acid Chest X-Ray 07/26/18 14:36 IMPRESSION: NO ACUTE RADIOGRAPHIC FINDING IN THE CHEST. - Vital Signs Vital signs: Temp Pulse Resp BP Pulse Ox 98.3 F 53 L 20 157/66 H 95 07/26/18 13:49 07/26/18 13:49 07/26/18 13:49 07/26/18 13:49 07/26/18 13:49 - Laboratory Result Diagrams: 07/26/18 15:10 07/26/18 15:10 Laboratory results interpreted by me: 07/26/18 07/26/18 07/26/18 14:50 15:10 15:10 RDW 17.6 H Chloride 110 H BUN 26 H Est GFR ( Amer) 59 L Est GFR (Non-Af Amer) 49 L Ur Leukocyte Esterase SMALL H Urine Ascorbic Acid 40 H - EKG Interpretation by Me Additional EKG results interpreted by me: EKG demonstrates sinus bradycardia with a ventricular rate of 56 bpm, normal axis, QTC 552 ms, no evidence of acute ischemia in this EKG, no ST elevation, there is comparison with prior EKG from 06/30/2018, at that time the patient was slightly tachycardic, otherwise no acute changes noted. Discharge - Discharge Clinical Impression: Chest pain Qualifiers: Chest pain type: unspecified Qualified Code(s): R07.9 - Chest pain, unspecified Dyspnea Qualifiers: Dyspnea type: unspecified Qualified Code(s): R06.00 - Dyspnea, unspecified Condition: Stable Disposition: ADMITTED OBSERVATION Admitting Provider: Alec (Hospitalist) Unit Admitted: Telemetry Referrals: CLAUDIA LUONG MD [Primary Care Provider] - Follow up as needed
[2018-07-26] MEDS ORDERED: ONDANSETRON HCL INJ/PF 4 MG/2 ML SDV IV PRN (17:35)
[2018-07-26] MEDS ORDERED: MORPHINE SULFATE 10 MG/ML INJ IV PRN (17:45)
--- NOTE | 2018-07-26 18:21 | PDOC H&P ---
History of Present Illness Admission Date/PCP: 07/26/18 17:09 CLAUDIA LUONG MD Patient complains of: Chest pressure History of Present Illness: CHADD WONG is a 68 year old female history of coronary artery disease status post stent placement, hypertension history of aortic aneurysm surgery as per the patient, depression, smoker history of brain surgery due to aneurysm came to the emergency room with complaints of chest pressure, as per the patient patient has an argument with her son got her chest pressure symptoms and son called the grill attendant and ENC advised to go to the emergency room for further evaluation. Work-up was done in the emergency room patient was chest pain-free in the ER EKG and troponins are negative medical consult was called for observation admission. Past Medical History Cardiac Medical History: Reports: Atrial Fibrillation, Hyperlipidema, Hypertension Pulmonary Medical History: Reports: Bronchitis Psychiatric Medical History: Reports: Depression Past Surgical History Past Surgical History: Reports: Appendectomy, Hysterectomy, Orthopedic Surgery - Right ulnar nerve repair at the elbow, Tubal Ligation, Vascular Surgery - 2013 ascending aortic aneurysm repair., Other - about Dec 30. endovascular stent of a descending thoracic psuedoaneursym Social History Information Source: Patient Smoking Status: Current Every Day Smoker Frequency of Alcohol Use: None Hx Recreational Drug Use: No Drugs: None Hx Prescription Drug Abuse: No - Advance Directive Resuscitation Status: Full Code Family History Family History: Reviewed & Not Pertinent Parental Family History Reviewed: Yes - Hypertension Children Family History Reviewed: Yes Sibling(s) Family History Reviewed.: Yes Medication/Allergy Allergies/Adverse Reactions: iodine [Iodine] Allergy (Verified 07/26/18 13:46) lisinopril Allergy (Verified 07/26/18 14:31) Review of Systems Constitutional: ABSENT: headache(s), weakness, weight gain, weight loss Eyes: ABSENT: visual disturbances Ears: ABSENT: hearing changes Cardiovascular: ABSENT: chest pain, dyspnea on exertion, edema, orthropnea, palpitations Respiratory: ABSENT: cough, hemoptysis Gastrointestinal: PRESENT: as per HPI Genitourinary: ABSENT: dysuria, hematuria Integumentary: ABSENT: rash, wounds Neurological: ABSENT: abnormal gait, abnormal speech, confusion, dizziness, focal weakness, syncope Psychiatric: ABSENT: anxiety, depression, homidical ideation, suicidal ideation Endocrine: ABSENT: cold intolerance, heat intolerance, polydipsia, polyuria Hematologic/Lymphatic: ABSENT: easy bleeding, easy bruising Physical Exam Vital Signs: Temp Pulse Resp BP Pulse Ox 98.3 F 53 L 20 157/66 H 95 07/26/18 13:49 07/26/18 13:49 07/26/18 13:49 07/26/18 13:49 07/26/18 13:49 Intake & Output 07/25/18 07/26/18 07/27/18 06:59 06:59 06:59 Weight 99.8 kg General appearance: PRESENT: no acute distress, obese Head exam: PRESENT: atraumatic Eye exam: PRESENT: PERRLA Mouth exam: PRESENT: moist, tongue midline Neck exam: ABSENT: carotid bruit, JVD, lymphadenopathy, thyromegaly Respiratory exam: PRESENT: decreased breath sounds Cardiovascular exam: PRESENT: tachycardia Pulses: PRESENT: normal dorsalis pedis pul GI/Abdominal exam: PRESENT: normal bowel sounds, soft. ABSENT: distended, guarding, mass, organolmegaly, rebound, tenderness Rectal exam: PRESENT: deferred Extremities exam: PRESENT: full ROM. ABSENT: calf tenderness, clubbing, pedal edema Neurological exam: PRESENT: alert, awake, oriented to person, oriented to place, oriented to time, oriented to situation, CN II-XII grossly intact. ABSENT: motor sensory deficit Psychiatric exam: PRESENT: appropriate affect, normal mood. ABSENT: homicidal ideation, suicidal ideation Results Laboratory Results: 07/26/18 15:10 07/26/18 15:10 07/26/18 07/26/18 07/26/18 14:50 15:10 15:10 WBC 7.9 RBC 4.19 Hgb 12.6 Hct 38.9 MCV 93 MCH 30.0 MCHC 32.3 RDW 17.6 H Plt Count 254 Seg Neutrophils % 56.0 Lymphocytes % 31.1 Monocytes % 9.8 Eosinophils % 2.2 Basophils % 0.9 Absolute Neutrophils 4.5 Absolute Lymphocytes 2.5 Absolute Monocytes 0.8 Absolute Eosinophils 0.2 Absolute Basophils 0.1 Sodium 144.0 Potassium 4.8 Chloride 110 H Carbon Dioxide 23 Anion Gap 11 BUN 26 H Creatinine 1.11 Est GFR ( Amer) 59 L Est GFR (Non-Af Amer) 49 L Glucose 88 Calcium 9.3 Total Bilirubin 0.7 AST 15 ALT 15 Alkaline Phosphatase 97 Total Protein 7.5 Albumin 4.2 Urine Color YELLOW Urine Appearance SLIGHTLY-CLOUDY Urine pH 5.0 Ur Specific [place] 1.027 Urine Protein NEGATIVE Urine Glucose (UA) NEGATIVE Urine Ketones NEGATIVE Urine Blood NEGATIVE Urine Nitrite NEGATIVE Ur Leukocyte Esterase SMALL H Urine WBC (Auto) 5 Urine RBC (Auto) 2 07/26/18 15:10 CK-MB (CK-2) 0.27 Troponin I < 0.012 Impressions: Chest X-Ray 07/26/18 14:36 IMPRESSION: NO ACUTE RADIOGRAPHIC FINDING IN THE CHEST. Assessment and Plan - Diagnosis (1) Chest pain Qualifiers: Chest pain type: unspecified Qualified Code(s): R07.9 - Chest pain, unspecified Is this a current diagnosis for this admission?: Yes Plan: 07/26/2018-patient came in chest pressure/chest pain. Patient is going to be admitted to telemetry and observation. The acute coronary syndrome protocol was implemented. Started on serial troponins and EKGs. Start on GI prophylaxis DVT prophylaxis. Start on aspirin and atorvastatin 10 mg p.o. nightly. Lipid panel was requested for tomorrow. Placed on oxygen 2 L nasal cannula to keep the pulse ox more than 90% started on morphine 1 mg IV every 4 PRN for chest pains. (2) Atrial fibrillation Is this a current diagnosis for this admission?: No Plan: 07/18/2018 patient has history of atrial fibrillation patient is in sinus rhythm now patient is not on any chronic anticoagulation at home. (3) Coronary artery disease Is this a current diagnosis for this admission?: No Plan: 07/26/2018-patient has history of coronary artery disease status post stent long cement. Diminished chest pain. Started on aspirin and atorvastatin. Home medication list is not available at this point. To check the lipid panel tomorrow. (4) Depression Is this a current diagnosis for this admission?: No Plan: 07/26/2018-patient came in with h/o of depression patient denies any history of anxiety depression at this point. (5) Obesity (BMI 30-39.9) Is this a current diagnosis for this admission?: No Plan: 07/26/[id number]-eigg-old female with a BMI of more than 35 diet exercise weight loss lifestyle modifications are discussed with the patient. Dietary consult was requested. - Time Time Spent with patient: 25-34 minutes Medications reviewed and adjusted accordingly: Yes Anticipated discharge: Home
--- NOTE | 2018-07-26 18:36 | EKG REPORT ---
SEVERITY:- BORDERLINE ECG - SINUS RHYTHM PROBABLE LEFT ATRIAL ABNORMALITY : Confirmed by: Flower Mckinney MD 26-Jul-2018 18:35:53
[2018-07-26] MEDS: ASPIRIN 81 MG TABLET, CHEWABLE PO SCH (19:26)
[2018-07-26] MEDS ORDERED: ATORVASTATIN CALCIUM 10 MG TABLET PO SCH (22:00)
[2018-07-26] MEDS: ACETAMINOPHEN 325 MG TABLET PO PRN (23:00)
[2018-07-26] MEDS: FAMOTIDINE 20 MG TABLET PO SCH (23:00)
[2018-07-27] MEDS: IPRATROPIUM/ALBUTEROL 0.5-2.5 MG/3 ML AMPUL NEB SCH ×3 (00:28→16:41)
[2018-07-27 07:27] LABS: ABSOLUTE EOSINOPHILS # (AUTO) 0.1 10^3/uL (0.0-0.6); ABSOLUTE LYMPHOCYTES (AUTO) 1.7 10^3/uL (0.5-4.7); ABSOLUTE MONOCYTES (AUTO) 0.6 10^3/uL (0.1-1.4); ABSOLUTE NEUT (AUTO) 3.2 10^3/uL (1.7-8.2); BASOPHILS % (AUTO) 0.7 % (0-2); HEMATOCRIT 35.4 % (36.0-47.0); HEMOGLOBIN 11.4 g/dL (12.0-15.5); LYMPHOCYTES % (AUTO) 29.6 % (13-45); MEAN CORPUSCULAR HGB CONC 32.2 g/dL (32.0-36.0); MEAN CORPUSCULAR VOLUME 93 fl (80-97); PLATELET COUNT 223 10^3/uL (150-450); RED BLOOD COUNT 3.79 10^6/uL (3.72-5.28); RED CELL DISTRIBUTION WIDTH 16.8 % (11.5-14.0); SEGMENTED NEUTROPHILS % (AUTO) 56.7 % (42-78); TOTAL CELLS COUNTED % (AUTO) 100 %; WHITE BLOOD COUNT 5.6 10^3/uL (4.0-10.5)
[2018-07-27 07:44] LABS: ALANINE AMINOTRANSFERASE 15 U/L (9-52); ALBUMIN 3.8 g/dL (3.5-5.0); ALKALINE PHOSPHATASE 78 U/L (38-126); ANION GAP 11 (5-19); ASPARTATE AMINO TRANSFERASE 12 U/L (14-36); BILIRUBIN,DIRECT 0.3 mg/dL (0.0-0.4); BILIRUBIN,TOTAL 0.6 mg/dL (0.2-1.3); BLOOD UREA NITROGEN 27 mg/dL (7-20); CALCIUM 9.5 mg/dL (8.4-10.2); CARBON DIOXIDE 23 mmol/L (22-30); CHLORIDE 111 mmol/L (98-107); CREATINE KINASE 42 U/L (30-135); GLUCOSE 88 mg/dL (75-110); POTASSIUM 4.4 mmol/L (3.6-5.0); SODIUM 145.2 mmol/L (137-145); TOTAL PROTEIN 6.6 g/dL (6.3-8.2); TRIGLYCERIDES 100 mg/dL (<150)
[2018-07-27 07:55] LABS: DIRECT LDL 74 mg/dL (<100); NT PRO BNP 597 pg/mL (5-900)
[2018-07-27 07:57] LABS: TROPONIN I < 0.012 ng/mL
[2018-07-27] MEDS: AMLODIPINE BESYLATE 10 MG TABLET PO SCH (09:42)
[2018-07-27] MEDS: HYDRALAZINE HCL 50 MG TABLET PO SCH ×3 (09:42→22:42)
[2018-07-27] MEDS ORDERED: ENOXAPARIN SODIUM INJ 40 MG/0.4 ML DISP.SYRIN SUBCUT SCH (10:00)
[2018-07-27] MEDS: ASPIRIN 81 MG TABLET, CHEWABLE PO SCH (12:24)
[2018-07-27] MEDS: FAMOTIDINE 20 MG TABLET PO SCH ×2 (12:24→22:43)
[2018-07-27] MEDS: ACETAMINOPHEN 325 MG TABLET PO PRN (12:27)
--- NOTE | 2018-07-27 12:35 | PDOC PROGRESS REPORT ---
Subjective Progress Note for:: 07/27/18 Subjective:: 68 year old female history of coronary artery disease status post stent placement, hypertension history of aortic valve surgery as per the patient, depression, smoker history of brain surgery due to aneurysm came to the emergency room with complaints of chest pressure, as per the patient patient has an argument with her son got her chest pressure symptoms and son called the child & adolescent psychiatrist and ENC advised to go to the emergency room for further evaluation. Work-up was done in the emergency room patient was chest pain-free in the ER EKG and troponins are negative medical consult was called for observation admission. 07/27/[id number]-iprf-old female with history of coronary artery disease status post stent placement, hypertension, history of aortic wall repair, depression, chronic smoker, history of brain aneurysm status post surgery admitted with chest pressure-like symptoms. She was supposed to go for stress test today but the blood pressures are persistently high so the test was postponed for tomorrow. pt is comfortable in the bed communicating well. Reason For Visit: CHEST PAIN Physical Exam Vital Signs: Temp Pulse Resp BP Pulse Ox 99.5 F 85 20 151/59 H 98 07/27/18 11:46 07/27/18 11:46 07/27/18 11:46 07/27/18 11:46 07/27/18 11:46 Intake & Output 07/26/18 07/27/18 07/28/18 06:59 06:59 06:59 Intake Total 222 240 Balance 222 240 Weight 111.1 kg General appearance: PRESENT: no acute distress Head exam: PRESENT: atraumatic Eye exam: PRESENT: PERRLA Mouth exam: PRESENT: moist, tongue midline Teeth exam: PRESENT: poor dentation Neck exam: ABSENT: carotid bruit, JVD, lymphadenopathy, thyromegaly Respiratory exam: PRESENT: decreased breath sounds Cardiovascular exam: PRESENT: RRR. ABSENT: diastolic murmur, rubs, systolic murmur GI/Abdominal exam: PRESENT: normal bowel sounds, soft. ABSENT: distended, guarding, mass, organolmegaly, rebound, tenderness Rectal exam: PRESENT: deferred Extremities exam: PRESENT: full ROM. ABSENT: calf tenderness, clubbing, pedal edema Neurological exam: PRESENT: alert, awake, oriented to person, oriented to place, oriented to time, oriented to situation, CN II-XII grossly intact. ABSENT: motor sensory deficit Psychiatric exam: PRESENT: appropriate affect, normal mood. ABSENT: homicidal ideation, suicidal ideation Results Laboratory Results: 07/27/18 07:05 07/27/18 07:05 07/26/18 07/26/18 07/26/18 14:50 15:10 15:10 WBC 7.9 RBC 4.19 Hgb 12.6 Hct 38.9 MCV 93 MCH 30.0 MCHC 32.3 RDW 17.6 H Plt Count 254 Seg Neutrophils % 56.0 Lymphocytes % 31.1 Monocytes % 9.8 Eosinophils % 2.2 Basophils % 0.9 Absolute Neutrophils 4.5 Absolute Lymphocytes 2.5 Absolute Monocytes 0.8 Absolute Eosinophils 0.2 Absolute Basophils 0.1 Sodium 144.0 Potassium 4.8 Chloride 110 H Carbon Dioxide 23 Anion Gap 11 BUN 26 H Creatinine 1.11 Est GFR ( Amer) 59 L Est GFR (Non-Af Amer) 49 L Glucose 88 Calcium 9.3 Magnesium Total Bilirubin 0.7 AST 15 ALT 15 Alkaline Phosphatase 97 Total Protein 7.5 Albumin 4.2 Triglycerides Cholesterol LDL Cholesterol Direct VLDL Cholesterol HDL Cholesterol TSH Urine Color YELLOW Urine Appearance SLIGHTLY-CLOUDY Urine pH 5.0 Ur Specific [place] 1.027 Urine Protein NEGATIVE Urine Glucose (UA) NEGATIVE Urine Ketones NEGATIVE Urine Blood NEGATIVE Urine Nitrite NEGATIVE Ur Leukocyte Esterase SMALL H Urine WBC (Auto) 5 Urine RBC (Auto) 2 07/27/18 07/27/18 07/27/18 07:05 07:05 07:05 WBC 5.6 RBC 3.79 Hgb 11.4 L Hct 35.4 L MCV 93 MCH 30.0 MCHC 32.2 RDW 16.8 H Plt Count 223 Seg Neutrophils % 56.7 Lymphocytes % 29.6 Monocytes % 11.0 Eosinophils % 2.0 Basophils % 0.7 Absolute Neutrophils 3.2 Absolute Lymphocytes 1.7 Absolute Monocytes 0.6 Absolute Eosinophils 0.1 Absolute Basophils 0.0 Sodium 145.2 H Potassium 4.4 Chloride 111 H Carbon Dioxide 23 Anion Gap 11 BUN 27 H Creatinine 0.98 Est GFR ( Amer) > 60 Est GFR (Non-Af Amer) 56 L Glucose 88 Calcium 9.5 Magnesium 2.2 Total Bilirubin 0.6 AST 12 L ALT 15 Alkaline Phosphatase 78 Total Protein 6.6 Albumin 3.8 Triglycerides 100 Cholesterol 159.30 LDL Cholesterol Direct 74 VLDL Cholesterol 20.0 HDL Cholesterol 67 TSH 1.60 Urine Color Urine Appearance Urine pH Ur Specific [place]gie Urine Protein Urine Glucose (UA) Urine Ketones Urine Blood Urine Nitrite Ur Leukocyte Esterase Urine WBC (Auto) Urine RBC (Auto) 07/26/18 07/26/18 07/26/18 15:10 18:35 18:35 Creatine Kinase 42 CK-MB (CK-2) 0.27 Troponin I < 0.012 < 0.012 NT-Pro-B Natriuret Pep 07/27/18 07/27/18 07/27/18 00:25 00:25 07:05 Creatine Kinase 39 42 CK-MB (CK-2) Troponin I < 0.012 NT-Pro-B Natriuret Pep 07/27/18 07:05 Creatine Kinase CK-MB (CK-2) Troponin I < 0.012 NT-Pro-B Natriuret Pep 597 Impressions: Chest X-Ray 07/26/18 14:36 IMPRESSION: NO ACUTE RADIOGRAPHIC FINDING IN THE CHEST. Assessment and Plan - Diagnosis (1) Chest pain Qualifiers: Chest pain type: unspecified Qualified Code(s): R07.9 - Chest pain, unspecified Is this a current diagnosis for this admission?: Yes Plan: 07/26/2018-patient came in chest pressure/chest pain. Patient is going to be admitted to telemetry and observation. The acute coronary syndrome protocol was implemented. Started on serial troponins and EKGs. Start on GI prophylaxis DVT prophylaxis. Start on aspirin and atorvastatin 10 mg p.o. nightly. Lipid panel was requested for tomorrow. Placed on oxygen 2 L nasal cannula to keep the pulse ox more than 90% started on morphine 1 mg IV every 4 PRN for chest pains. 07/27/2018-patient came in with chest pressure-like symptoms acute coronary syndrome protocol was implemented. Supported have a stress test this morning but because of the uncontrolled hypertension on systolic blood pressure went up to more than 190 test was postponed for tomorrow. Patient is comfortably in the bed communicating well. Plan is to continue her home medications except for metoprolol until the stress test was done. cardiac enzymes EKGs are negative. (2) Atrial fibrillation Is this a current diagnosis for this admission?: No Plan: 07/26/2018 patient has history of atrial fibrillation patient is in sinus rhythm now patient is not on any chronic anticoagulation at home. 07/27/2018-patient has history of chronic atrial fibrillation on Pradaxa at home which was resumed today. (3) Coronary artery disease Is this a current diagnosis for this admission?: No (4) Depression Is this a current diagnosis for this admission?: No (5) Obesity (BMI 30-39.9) Is this a current diagnosis for this admission?: No (6) HTN (hypertension) Is this a current diagnosis for this admission?: Yes Plan: 07/27/2018-patient has history of chronic essential hypertension she is on amlodipine and metoprolol at home and also on Lasix. Plan is to hold metoprolol and continue the other medications latest blood pressure is 151/60. plan is to continue to closely monitor the blood pressure every shift basis. - Time Time Spent with patient: 15-24 minutes Smoking Cessation Education: over 10 minutes Medications reviewed and adjusted accordingly: Yes Anticipated discharge: Home
[2018-07-27] MEDS ORDERED: AMLODIPINE BESYLATE 10 MG TABLET PO SCH (13:00)
[2018-07-27] MEDS ORDERED: FUROSEMIDE 40 MG TABLET PO SCH (14:00)
[2018-07-27] MEDS ORDERED: HYDRALAZINE HCL INJ/PF 20 MG/1 ML SDV ONE (17:49)
[2018-07-27] MEDS ORDERED: DILTIAZEM HCL/D5W 125 MG/125 ML RTUINJ IV PRN (17:55)
[2018-07-27] MEDS: DABIGATRAN ETEXILATE 150 MG CAPSULE PO SCH (18:16)
[2018-07-27] MEDS ORDERED: DILTIAZEM HCL INJ 25 MG/5 ML VIAL IV ONE ×2 (18:45→19:45)
[2018-07-27] MEDS ORDERED: HYDRALAZINE HCL INJ/PF 20 MG/1 ML SDV IV ONE (18:45)
[2018-07-27] MEDS ORDERED: METOPROLOL TARTRATE PF/INJ 5 MG/5 ML SDV IV PRN (19:41)
[2018-07-27] MEDS ORDERED: METOPROLOL TARTRATE PF/INJ 5 MG/5 ML SDV IV ONE (19:49)
--- NOTE | 2018-07-27 22:12 | EKG REPORT ---
SEVERITY:- ABNORMAL ECG - ATRIAL FIBRILLATION REPOLARIZATION ABNORMALITY, PROB RATE RELATED : Confirmed by: Flower Mckinney MD 27-Jul-2018 22:11:53
[2018-07-27] MEDS: ATORVASTATIN CALCIUM 80 MG TABLET PO SCH (22:43)
[2018-07-28] MEDS: ACETAMINOPHEN 325 MG TABLET PO PRN ×4 (00:35→20:23)
[2018-07-28 05:19] LABS: ABSOLUTE BASOPHILS # (AUTO) 0.1 10^3/uL (0.0-0.2); ABSOLUTE EOSINOPHILS # (AUTO) 0.1 10^3/uL (0.0-0.6); ABSOLUTE LYMPHOCYTES (AUTO) 2.1 10^3/uL (0.5-4.7); ABSOLUTE MONOCYTES (AUTO) 0.9 10^3/uL (0.1-1.4); ABSOLUTE NEUT (AUTO) 4.1 10^3/uL (1.7-8.2); BASOPHILS % (AUTO) 0.8 % (0-2); EOSINOPHILS % (AUTO) 1.6 % (0-6); HEMATOCRIT 34.4 % (36.0-47.0); HEMOGLOBIN 11.3 g/dL (12.0-15.5); LYMPHOCYTES % (AUTO) 28.6 % (13-45); MEAN CORPUSCULAR HEMOGLOBIN 30.4 pg (27.0-33.4); MEAN CORPUSCULAR HGB CONC 32.8 g/dL (32.0-36.0); MEAN CORPUSCULAR VOLUME 93 fl (80-97); MONOCYTES % (AUTO) 12.9 % (3-13); PLATELET COUNT 221 10^3/uL (150-450); RED BLOOD COUNT 3.71 10^6/uL (3.72-5.28); RED CELL DISTRIBUTION WIDTH 17.2 % (11.5-14.0); SEGMENTED NEUTROPHILS % (AUTO) 56.1 % (42-78); TOTAL CELLS COUNTED % (AUTO) 100 %; WHITE BLOOD COUNT 7.4 10^3/uL (4.0-10.5)
[2018-07-28] MEDS: HYDRALAZINE HCL 50 MG TABLET PO SCH ×3 (05:26→21:05)
[2018-07-28 05:33] LABS: ALANINE AMINOTRANSFERASE 13 U/L (9-52); ALBUMIN 3.6 g/dL (3.5-5.0); ALKALINE PHOSPHATASE 77 U/L (38-126); ANION GAP 9 (5-19); ASPARTATE AMINO TRANSFERASE 13 U/L (14-36); BILIRUBIN,DIRECT 0.2 mg/dL (0.0-0.4); BILIRUBIN,TOTAL 0.6 mg/dL (0.2-1.3); BLOOD UREA NITROGEN 29 mg/dL (7-20); CALCIUM 9.5 mg/dL (8.4-10.2); CARBON DIOXIDE 26 mmol/L (22-30); CHLORIDE 110 mmol/L (98-107); GLUCOSE 84 mg/dL (75-110); POTASSIUM 4.3 mmol/L (3.6-5.0); TOTAL PROTEIN 6.5 g/dL (6.3-8.2)
[2018-07-28] MEDS: ASPIRIN 81 MG TABLET, CHEWABLE PO SCH (10:44)
[2018-07-28] MEDS: FAMOTIDINE 20 MG TABLET PO SCH ×2 (10:44→21:04)
[2018-07-28] MEDS: AMLODIPINE BESYLATE 10 MG TABLET PO SCH (10:44)
[2018-07-28] MEDS: AMIODARONE HCL 200 MG TABLET PO SCH (10:44)
[2018-07-28] MEDS: DABIGATRAN ETEXILATE 150 MG CAPSULE PO SCH ×2 (10:48→18:26)
[2018-07-28] MEDS ORDERED: ONDANSETRON HCL INJ/PF 4 MG/2 ML SDV IV PRN (15:30)
--- NOTE | 2018-07-28 15:56 | PDOC PROGRESS REPORT ---
Subjective Reason For Visit: CHEST PAIN Physical Exam Vital Signs: Temp Pulse Resp BP Pulse Ox 97.8 F 80 19 141/55 H 95 07/28/18 12:02 07/28/18 12:02 07/28/18 12:02 07/28/18 12:02 07/28/18 12:02 Intake & Output 07/27/18 07/28/18 07/29/18 06:59 06:59 06:59 Intake Total 222 637 342 Balance 222 637 342 Weight 111.1 kg 110 kg Results Laboratory Results: 07/28/18 04:08 07/28/18 04:08 07/28/18 07/28/18 04:08 04:08 WBC 7.4 RBC 3.71 L Hgb 11.3 L Hct 34.4 L MCV 93 MCH 30.4 MCHC 32.8 RDW 17.2 H Plt Count 221 Seg Neutrophils % 56.1 Lymphocytes % 28.6 Monocytes % 12.9 Eosinophils % 1.6 Basophils % 0.8 Absolute Neutrophils 4.1 Absolute Lymphocytes 2.1 Absolute Monocytes 0.9 Absolute Eosinophils 0.1 Absolute Basophils 0.1 Sodium 145.0 Potassium 4.3 Chloride 110 H Carbon Dioxide 26 Anion Gap 9 BUN 29 H Creatinine 1.20 Est GFR ( Amer) 54 L Est GFR (Non-Af Amer) 45 L Glucose 84 Calcium 9.5 Magnesium 2.2 Total Bilirubin 0.6 AST 13 L ALT 13 Alkaline Phosphatase 77 Total Protein 6.5 Albumin 3.6 07/26/18 07/26/18 07/26/18 15:10 18:35 18:35 Creatine Kinase 42 CK-MB (CK-2) 0.27 Troponin I < 0.012 < 0.012 NT-Pro-B Natriuret Pep 07/27/18 07/27/18 07/27/18 00:25 00:25 07:05 Creatine Kinase 39 42 CK-MB (CK-2) Troponin I < 0.012 NT-Pro-B Natriuret Pep 07/27/18 07/27/18 07:05 18:44 Creatine Kinase CK-MB (CK-2) Troponin I < 0.012 < 0.012 NT-Pro-B Natriuret Pep 597 Impressions: Chest X-Ray 07/26/18 14:36 IMPRESSION: NO ACUTE RADIOGRAPHIC FINDING IN THE CHEST. Assessment and Plan - Diagnosis (1) Chest pain Qualifiers: Chest pain type: unspecified Qualified Code(s): R07.9 - Chest pain, u nspecified Is this a current diagnosis for this admission?: Yes Plan: Enzymes negative. Currently pain-free. Plan to finish up her stress test tomorrow. Per Dr. Mckinney her beta-landon and other medications are to be given in the morning despite the fact she is having a stress test. (2) Coronary artery disease Is this a current diagnosis for this admission?: Yes Plan: Continue home medications (3) HTN (hypertension) Is this a current diagnosis for this admission?: Yes Plan: Well-controlled on her home medications (4) Obesity (BMI 30-39.9) Is this a current diagnosis for this admission?: No Plan: Encouraged lifestyle modification (5) Atrial fibrillation with RVR Is this a current diagnosis for this admission?: Yes Plan: Back in a sinus rhythm. Will restart her metoprolol, except will give it to her twice a day. When she gets her next dose of metoprolol we will transition her off the Cardizem drip. She is on her Pradaxa. She is also on her home dose of amiodarone. - Time Time Spent with patient: 15-24 minutes
[2018-07-28] MEDS: METOPROLOL TARTRATE 50 MG TABLET PO SCH (21:04)
[2018-07-28] MEDS: ATORVASTATIN CALCIUM 80 MG TABLET PO SCH (21:04)
[2018-07-29] MEDS: ACETAMINOPHEN 325 MG TABLET PO PRN ×3 (00:17→13:12)
[2018-07-29] MEDS: HYDRALAZINE HCL 50 MG TABLET PO SCH ×2 (05:17→13:12)
[2018-07-29] MEDS: ASPIRIN 81 MG TABLET, CHEWABLE PO SCH (09:53)
[2018-07-29] MEDS: AMLODIPINE BESYLATE 10 MG TABLET PO SCH (09:53)
[2018-07-29] MEDS: METOPROLOL TARTRATE 50 MG TABLET PO SCH (09:53)
[2018-07-29] MEDS: AMIODARONE HCL 200 MG TABLET PO SCH (09:53)
[2018-07-29] MEDS: DABIGATRAN ETEXILATE 150 MG CAPSULE PO SCH ×2 (09:54→17:52)
[2018-07-29] MEDS: FAMOTIDINE 20 MG TABLET PO SCH (09:54)
[2018-07-29] MEDS ORDERED: REGADENOSON INJ 0.4 MG/5 ML DISP.SYRIN IV ONE (15:21)
[2018-07-29 17:20] VITALS: BP 143/56
--- NOTE | 2018-07-29 17:25 | PDOC DISCHARGE SUMMARY ---
General - Admit/Disc Date/PCP Admission Date/Primary Care Provider: 07/26/18 17:09 Discharge Date: 07/29/18 - Discharge Diagnosis (1) Chest pain Is this a current diagnosis for this admission?: Yes Summary: SD was ruled out. Stress test was negative. It sounds like this could have been an anxiety reaction provoked by an argument she had with her son. (2) Coronary artery disease Is this a current diagnosis for this admission?: Yes Summary: Stable on her home medications, stress test was negative (3) HTN (hypertension) Is this a current diagnosis for this admission?: Yes Summary: Controlled with her home medications (4) Obesity (BMI 30-39.9) Is this a current diagnosis for this admission?: Yes Summary: Encouraged lifestyle modification (5) Atrial fibrillation with RVR Is this a current diagnosis for this admission?: Yes Summary: She went into atrial fibrillation after her beta-landon was held for stress test. Went back into sinus rhythm on a Cardizem drip and stayed that way after her beta-landon was restarted. She is anticoagulated. - Additional Information Resuscitation Status: Full Code Discharge Diet: Cardiac Discharge Activity: Activity As Tolerated Prescriptions: Metoprolol Tartrate [Lopressor 50 mg Tablet] 50 mg PO BID #60 tablet Home Medications: Amiodarone HCl [Cordarone 200 mg Tablet] 200 mg PO DAILY 07/26/18 Amlodipine Besylate [Norvasc 10 mg Tablet] 10 mg PO DAILY 07/26/18 Atorvastatin Calcium [Lipitor 80 mg Tablet] 80 mg PO QHS 07/26/18 Dabigatran Etexilate Mesylate [Pradaxa 150 mg Capsule] 150 mg PO BID 07/26/18 Furosemide [Lasix 40 mg Tablet] 40 mg PO DAILY 07/26/18 Hydralazine HCl [Apresoline 50 mg Tablet] 50 mg PO TID 07/26/18 Spironolactone [Aldactone 25 mg Tablet] 25 mg PO DAILY 07/26/18 Metoprolol Tartrate [Lopressor 50 mg Tablet] 50 mg PO BID #60 tablet 07/29/18 History of Present Illness History of Present Illness: CHADD WONG is a 68 year old female history of coronary artery disease status post stent placement, hypertension history of aortic aneurysm surgery as per the patient, depression, smoker history of brain surgery due to aneurysm cam e to the emergency room with complaints of chest pressure, as per the patient patient has an argument with her son got her chest pressure symptoms and son called the gas brazer and ENC advised to go to the emergency room for further evaluation. Work-up was done in the emergency room patient was chest pain-free in the ER EKG and troponins are negative medical consult was called for observation admission. Hospital Course Hospital Course: Her troponins remain flat. They got her resting images, but when it came time to the stress portion her blood pressure was elevated and she was complaining of some chest discomfort so they held off on doing the stress portion. Her beta- landon was held for the stress test, and she wound up going into A. fib with RVR. She says she had not been in A. fib in a long time. She responded quickly with a Cardizem drip and maintained a sinus rhythm after she was put back on her beta-landon. We were able to get the stress portion done and that was negative. She will continue on her home medications. Her labs and examination were reassuring and she was discharged in good condition. Physical Exam Vital Signs: Temp Pulse Resp BP Pulse Ox 97.8 F 79 16 149/66 H 97 07/29/18 14:59 07/29/18 14:59 07/29/18 14:59 07/29/18 14:59 07/29/18 14:59 Intake & Output 07/28/18 07/29/18 07/30/18 06:59 06:59 06:59 Intake Total 637 642 740 Balance 637 642 740 Weight 110 kg 111.3 kg General appearance: PRESENT: no acute distress, cooperative, disheveled, morbidly obese Respiratory exam: PRESENT: clear to auscultation chloé, symmetrical, unlabored. ABSENT: accessory muscle use, chest wall tenderness, crackles, prolonged expiratory phas, rhonchi, tachypnea, wheezes Cardiovascular exam: PRESENT: RRR, +S1, +S2. ABSENT: diastolic murmur, systolic murmur Pulses: PRESENT: normal carotid pulses Vascular exam: PRESENT: normal capillary refill GI/Abdominal exam: PRESENT: normal bowel sounds, soft. ABSENT: distended, guarding, rebound, tenderness Extremities exam: ABSENT: clubbing, pedal edema Musculoskeletal exam: PRESENT: normal inspection. ABSENT: deformity Neurological exam: PRESENT: alert, awake, oriented to person, oriented to place, oriented to situation Psychiatric exam: PRESENT: appropriate affect, normal mood Skin exam: PRESENT: dry, warm Results Laboratory Results: 07/28/18 04:08 07/28/18 04:08 07/26/18 07/26/18 07/26/18 15:10 18:35 18:35 Creatine Kinase 42 CK-MB (CK-2) 0.27 Troponin I < 0.012 < 0.012 NT-Pro-B Natriuret Pep 07/27/18 07/27/18 07/27/18 00:25 00:25 07:05 Creatine Kinase 39 42 CK-MB (CK-2) Troponin I < 0.012 NT-Pro-B Natriuret Pep 07/27/18 07/27/18 07:05 18:44 Creatine Kinase CK-MB (CK-2) Troponin I < 0.012 < 0.012 NT-Pro-B Natriuret Pep 597 Impressions: Chest X-Ray 07/26/18 14:36 IMPRESSION: NO ACUTE RADIOGRAPHIC FINDING IN THE CHEST. Qualifiers - * PATIENT BEING DISCHARGED WITH ANY OF THE FOLLOWING DIAGNOSIS: No Acute Heart Failure Is this a Heart Failure Patient?: No Plan Time Spent: Greater than 30 Minutes
--- NOTE | 2018-07-29 19:50 | DRAGON STRESS TEST REPORT ---
2 Day Intravenous Lexiscan Cardiolite stress test using single photon emmision computerized tomography. Date of Resting procedure: 07/27/2018. Date of Stress procedure: 07/29/2018.Ordering Provider: Dr. Michael. Indication: Chest pain in a patient with coronary artery disease and history of prior stent placement in unknown coronary artery... Coronary risk factors:: Age, dyslipidemia, and history of tobacco abuse disorder. Resting EKG: Sinus Rhythm. Nonspecific ST-T changes diffuse. Stress EKG: No changes of ischemia. The patient no chest pain or discomfort, and there were no arrhythmias seen Reason for termination: Protocol. Conclusions: Normal EKG and hemodynamic response to IV Lexiscan. Nuclear data: At rest, on 07/27/2018, the patient was given 14.83 millicuries of technetium 99m sestamibi injected intravenously. As per protocol rest gated SPECT images were obtained. On 07/29/2018, the patient was given intravenous Lexiscan at a dose of 0.4 mg in 5 mL intravenously, followed by flush with normal saline. Subsequently the stress dose of 42.6 millicuries of technetium 99m sestamibi was injected intravenously. As per protocol stress gated images were obtained. Nuclear interpretation: Review of images showed that all segments of the myocardium had normal perfusion at rest, and normal perfusion post stress with IV Lexiscan. All segments of the myocardium had normal motion, contraction, and thickening by gated study. T. I D. ratio was read as abnormal at 1.25. Visually this is not reliable, and visually that T I D ratio was normal. There is no transient ischemic dilatation of the left ventricle. Computer read rest, and stress left ventricular ejection fraction were 57 %, and 53 %, respectively. Visually both the stress and rest ejection fractions were normal, and greater than 55%. Conclusion: 1. There is no scintigraphic evidence of Lexiscan induced myocardial ischemia. 2. There is no scintigraphic evidence of myocardial infarction/scar. Recommendations: Aggressive risk factor modification, and treating the underlying co- morbidities. MTDD
== END 2018-07-29 19:00 | disposition home or self-care (01) ==
LOC: ER 13:42 → EH 17:09 → 4S 22:00 → 3N 07-27 20:00
PROVIDERS: ADMIT Internal Medicine; ATTEND Internal Medicine
DX: R07.89 Other chest pain (principal); I25.10 Atherosclerotic heart disease of native coronary artery without angina pectoris; I10 Essential (primary) hypertension; E66.9 Obesity, unspecified; I48.2 Chronic atrial fibrillation; F17.210 Nicotine dependence, cigarettes, uncomplicated; F32.9 Major depressive disorder, single episode, unspecified; R11.0 Nausea; R61 Generalized hyperhidrosis; R06.02 Shortness of breath; R00.1 Bradycardia, unspecified; E78.5 Hyperlipidemia, unspecified; Z68.39 Body mass index [BMI] 39.0-39.9, adult; Z79.899 Other long term (current) drug therapy; Z95.5 Presence of coronary angioplasty implant and graft; Z98.890 Other specified postprocedural states; Z90.49 Acquired absence of other specified parts of digestive tract; Z82.49 Family history of ischemic heart disease and other diseases of the circulatory system; Z79.02 Long term (current) use of antithrombotics/antiplatelets; Z95.2 Presence of prosthetic heart valve; Z95.828 Presence of other vascular implants and grafts
CPT/HCPCS: 93005 ×2; 99285; 36415 ×3; 82553; 82550 ×2; 83735 ×2; 84443; 85025 ×3; 80053 ×3; 81001; 84484 ×2; 83036; 80061; 83880; 93017; 71046; 78451 ×2; 93010 ×2; 94640 ×2; A9500 ×2; A9270 ×25; J2785; J0360; J3490 ×7; J2270; J1650; J2405; Q9969 ×2; G0378; J7620

== ENCOUNTER 2019-03-19 12:24 | Emergency (ER) | payer MEDICARE, OTHER ==
[2019-03-19] MEDS ORDERED: METOPROLOL TARTRATE PF/INJ 5 MG/5 ML SDV IV ONE (13:15)
[2019-03-19 13:22] LABS: ABSOLUTE LYMPHOCYTES (AUTO) 1.5 10^3/uL (0.5-4.7); ABSOLUTE MONOCYTES (AUTO) 0.6 10^3/uL (0.1-1.4); ABSOLUTE NEUT (AUTO) 5.6 10^3/uL (1.7-8.2); BASOPHILS % (AUTO) 0.6 % (0-2); EOSINOPHILS % (AUTO) 0.6 % (0-6); HEMATOCRIT 40.6 % (36.0-47.0); HEMOGLOBIN 13.5 g/dL (12.0-15.5); LYMPHOCYTES % (AUTO) 19.3 % (13-45); MEAN CORPUSCULAR HEMOGLOBIN 31.2 pg (27.0-33.4); MEAN CORPUSCULAR HGB CONC 33.4 g/dL (32.0-36.0); MEAN CORPUSCULAR VOLUME 94 fl (80-97); MONOCYTES % (AUTO) 7.4 % (3-13); PLATELET COUNT 246 10^3/uL (150-450); RED BLOOD COUNT 4.33 10^6/uL (3.72-5.28); RED CELL DISTRIBUTION WIDTH 14.6 % (11.5-14.0); SEGMENTED NEUTROPHILS % (AUTO) 72.1 % (42-78); TOTAL CELLS COUNTED % (AUTO) 100 %; WHITE BLOOD COUNT 7.8 10^3/uL (4.0-10.5)
[2019-03-19 13:33] LABS: ALBUMIN 4.3 g/dL (3.5-5.0); ALKALINE PHOSPHATASE 77 U/L (38-126); ANION GAP 9 (5-19); ASPARTATE AMINO TRANSFERASE 18 U/L (14-36); BILIRUBIN,TOTAL 0.4 mg/dL (0.2-1.3); BLOOD UREA NITROGEN 17 mg/dL (7-20); CALCIUM 10.4 mg/dL (8.4-10.2); CARBON DIOXIDE 25 mmol/L (22-30); CHLORIDE 107 mmol/L (98-107); CREATINE KINASE 85 U/L (30-135); GLUCOSE 112 mg/dL (75-110); POTASSIUM 3.9 mmol/L (3.6-5.0); TOTAL PROTEIN 7.7 g/dL (6.3-8.2)
[2019-03-19 13:48] LABS: CREATINE KINASE MB 1.27 ng/mL (<4.55)
[2019-03-19 13:59] LABS: TROPONIN I < 0.012 ng/mL
--- NOTE | 2019-03-19 14:07 | RADIOLOGY REPORT (SQ) ---
EXAM DESCRIPTION: CHEST SINGLE VIEW COMPLETED DATE/TIME: 03/19/2019 1:32 pm REASON FOR STUDY: chest pain COMPARISON: Chest x-ray 07/26/2018, 03/20/2016, CT angiogram chest 03/20/2016. EXAM PARAMETERS: NUMBER OF VIEWS: One view. TECHNIQUE: Single frontal radiographic view of the chest acquired. RADIATION DOSE: NA LIMITATIONS: None. FINDINGS: LUNGS AND PLEURA: No consolidation, pneumothorax or pleural effusion. MEDIASTINUM AND HILAR STRUCTURES: Redemonstration of thoracic aortic aneurysm with descending aortic endograft. HEART AND VASCULAR STRUCTURES: The heart is enlarged. No overt vascular congestion. BONES: No acute findings. HARDWARE: Sternotomy wires are present. Vascular endograft at the thoracic aorta. IMPRESSION: Cardiomegaly. No consolidation or pleural effusion. TECHNICAL DOCUMENTATION: JOB ID: [id number] [employer]- All Rights Reserved Reading location - IP/workstation name: [email or web address]
[2019-03-19 14:10] VITALS: BP 130/77
--- NOTE | 2019-03-19 14:11 | ER Document Report ---
Entered by NIELS THOMAS SCRIBE 03/19/19 1309 Acting as scribe for:MATHEW DAY IV, MD ED Cardiac - General Chief Complaint: Chest Pain Stated Complaint: CHEST PAIN Time Seen by Provider: 03/19/19 12:57 Primary Care Provider: CLAUDIA LUONG MD [Primary Care Provider] - Follow up as needed Mode of Arrival: Ambulatory Information source: Patient Notes: This 68-year-old female patient presents to the emergency department today with complaints of a heart racing sensation with associated chest pain. Patient has been out of her metoprolol for several days. Patient states she went into [facility] today to get her medication filled and she took it at 1030 this morning and it relieved some of her symptoms but it is still present. Patient states since arriving here her chest pain has resolved and her heart rate has come down but it is still in the 130s on arrival. TRAVEL OUTSIDE OF THE [place] IN LAST 30 DAYS: No - Related Data Allergies/Adverse Reactions: iodine [Iodine] Allergy (Verified 03/19/19 13:40) lisinopril Allergy (Verified 03/19/19 13:40) Past Medical History - General Information source: Patient, [facility] Records - Social History Smoking Status: Never Smoker Cigarette use (# per day): No Frequency of alcohol use: None Drug Abuse: None Lives with: Family Family History: Reviewed & Not Pertinent - Past Medical History Cardiac Medical History: Reports: Hx Atrial Fibrillation, Hx Hypercholesterolemia, Hx Hypertension Pulmonary Medical History: Reports: Hx Bronchitis Neurological Medical History: Reports: Hx Cerebrovascular Accident - cerebral aneurysm Musculoskeletal Medical History: Reports Hx Musculoskeletal Deformity Psychiatric Medical History: Reports: Hx Depression Past Surgical History: Reports: Hx Appendectomy, Hx Cardiac Surgery - aorta repair, Hx Hysterectomy, Hx Neurologic Surgery - Right-sided craniotomy for cerebral aneurysm clipped in 2008, Hx Orthopedic Surgery - Right ulnar nerve repair at the elbow, Hx Tubal Ligation, Hx Vascular Surgery - 2014 ascending aortic aneurysm repair., Other - about Dec 30. endovascular stent of a descending thoracic psuedoaneursym - Immunizations Immunizations up to date: Yes Hx Diphtheria, Pertussis, Tetanus Vaccination: Yes Hx Pneumococcal Vaccination: 12/27/12 Review of Systems - Review of Systems Constitutional: No symptoms reported EENT: No symptoms reported Cardiovascular: See HPI, Chest pain, Heart racing Respiratory: No symptoms reported Gastrointestinal: No symptoms reported Genitourinary: No symptoms reported Female Genitourinary: No symptoms reported Musculoskeletal: No symptoms reported Skin: No symptoms reported Hematologic/Lymphatic: No symptoms reported Neurological/Psychological: No symptoms reported -: Yes All other systems reviewed and negative Physical Exam - Vital signs Vitals: Resp 24 H 03/19/19 12:42 - Notes Notes: Physical Exam: General: Alert, appears well. HEENT: Normocephalic. Atraumatic. PERRL. Extraocular movements intact. Oropharynx clear. Neck: Supple. Non-tender. Respiratory: No respiratory distress. Clear and equal breath sounds bilaterally. Cardiovascular: Tachycardic. Irregularly irregular. Abdominal: Normal Inspection. Non-tender. No distension. Normal Bowel Sounds. Back: No gross abnormalities. Extremities: Moves all four extremities. Upper extremities: Normal inspection. Normal ROM. Lower extremities: Normal inspection. No edema. Normal ROM. Neurological: Normal cognition. AAOx4. Normal speech. Psychological: Normal affect. Normal Mood. Skin: Warm. Dry. Normal color. Course - Re-evaluation Re-evalutation: 03/19/19 14:58 Patient denies chest pain. Patient is now in sinus rhythm with a heart rate of 61 and a blood pressure of 130/77. - Vital Signs Vital signs: Temp Pulse Resp BP Pulse Ox 98.2 F 16 130/77 H 97 03/19/19 13:41 03/19/19 14:01 03/19/19 14:00 03/19/19 14:01 - Laboratory Result Diagrams: 03/19/19 13:05 03/19/19 13:05 Laboratory results interpreted by me: 03/19/19 03/19/19 13:05 13:05 RDW 14.6 H Creatinine 1.46 H Est GFR ( Amer) 43 L Est GFR (MDRD) Non-Af 36 L Glucose 112 H Calcium 10.4 H - Diagnostic Test Radiology reviewed: Reports reviewed - EKG Interpretation by Me Additional EKG results interpreted by me: 03/19/19 14:59 EKG obtained on 03/19/2019 at 1232 hrs. was interpreted by this MD. Findings atrial fibrillation, rate 139, normal axis, QRS complex appears narrow, ST segments are nonspecific. Repeat EKG obtained on 03/19/2019 at 1442 hrs. was interpreted by this MD. Findings: Sinus rhythm, first-degree AV block is present, normal axis, QRS complex appears narrow, there are no obvious patterns of ST segment elevation or depression present to suggest acute myocardial ischemia or infarction. - Consults DR. CHAPMAN, CARDIOLOGY Time consulted: 15:00 Reason for consultation: 03/19/19 15:04 A FIB WITH RVR Consulted provider: follow-up in office - Dr. Chapman stated that the patient could be discharged home. He asked that the patient follow-up with him tomorrow. Discharge - Discharge Clinical Impression: Atrial fibrillation Qualifiers: Atrial fibrillation type: unspecified Qualified Code(s): I48.91 - Unspecified atrial fibrillation Condition: Good Disposition: HOME, SELF-CARE Additional Instructions: Return to the Emergency Department without delay if any worse. HOME CARE INSTRUCTIONS & INFORMATION: Thank you for choosing us for your medical needs. We hope you're satisfied with the care you received. After you leave, you must properly care for your problem and, at the same time, observe its progress. Any condition can change. Some illnesses can change rapidly over hours or days. If your condition worsens, return to the Emergency Department or see your physician promptly. ABOUT YOUR X-RAYS AND EKG'S: If you had an EKG or X-rays taken, they have been read by the Emergency Physician. The X-rays and EKG's will also be read by a Radiologist or Computer Equipment Installer within 24 hours. If discrepancies are noted, you will be notified by telephone. Please be certain the ED has a correct telephone number & address where you can be reached. Also, realize that some fractures or abnormalities do not show up on initial X-rays. If your symptoms continue, see your physician. ABOUT YOUR LABORATORY TEST: If you had laboratory tests, the results have been reviewed by the Emergency Physician. Some test results (for example cultures) may not be available for several days. You will be contacted if any test result shows you need additional treatment. Please be certain the ED has a correct telephone number and address where you can be reached. ABOUT YOUR MEDICATIONS: You will receive instructions on how to take your medicine on the prescription label you receive. Additional information may be provided by the Pharmacy. If you have questions afterwards, call the ED for clarification or further instructions. Some prescribed medications may cause drowsiness. Do not perform tasks such as driving a car or operating machinery without consulting your Pharmacist. If you feel you need a refill of pain medication, your condition will need re-evaluation. Please do not call for a refill of any medication. ABOUT YOUR SIGNATURE: Signature of this document acknowledges to followin. Understanding that you received emergency treatment and that you may be released before al medical problems are known or treated. Please be certain the ED has a correct phone number & address where you can be reached. 2. Acknowledgement that you will arrange for follow-up care as recommended. 3. Authorization for the Emergency Physician to provide information to your follow-up Physician in order to maximize your care. AT ANY TIME, IF YOUR SYMPTOMS CHANGE SIGNIFICANTLY OR WORSEN OR YOU DEVELOP NEW SYMPTOMS, RETURN TO THE EMERGENCY DEPARTMENT IMMEDIATELY FOR RE-EVALUATION. OUR GOAL IS TO PROVIDE EXCELLENT MEDICAL CARE! WE HOPE THAT WE HAVE MET YOUR EXPECTATIONS DURING YOUR EMERGENCY DEPARTMENT VISIT AND THAT YOU FEEL YOU HAVE RECEIVED EXCELLENT CARE! Referrals: CLAUDIA LUONG MD [Primary Care Provider] - Follow up as needed TOMAS CHAPMAN MD [ACTIVE STAFF] - Follow up tomorrow I personally performed the services described in the documentation, reviewed and edited the documentation which was dictated to the scribe in my presence, and it accurately records my words and actions.
--- NOTE | 2019-03-19 18:27 | EKG REPORT ---
SEVERITY:- ABNORMAL ECG - SINUS RHYTHM FIRST DEGREE AV BLOCK : Confirmed by: Flower Mckinney MD 19-Mar-2019 18:27:28
--- NOTE | 2019-03-19 18:28 | EKG REPORT ---
SEVERITY:- ABNORMAL ECG - A-FLUTTER W/ PREDOM 2:1 AV BLOCK, A-RATE 312 PROBABLE LVH WITH SECONDARY REPOL ABNRM BORDERLINE PROLONGED QT INTERVAL : Confirmed by: Flower Mckinney MD 19-Mar-2019 18:28:00
== END 2019-03-19 15:36 | disposition home or self-care (01) ==
LOC: ER 12:24
DX: I48.91 Unspecified atrial fibrillation (principal); I44.0 Atrioventricular block, first degree; R00.0 Tachycardia, unspecified; R07.9 Chest pain, unspecified; I10 Essential (primary) hypertension; Z88.8 Allergy status to other drugs, medicaments and biological substances
CPT/HCPCS: 93005; 99285; 36415; 82553; 82550; 85025; 80053; 84484; 71045; 93010; J3490

== ENCOUNTER 2019-03-28 18:15 | Emergency (ER) | payer MEDICARE, OTHER ==
--- NOTE | 2019-03-28 18:44 | ER Document Report ---
ED Medical Screen (RME) - General Chief Complaint: Palpitations Stated Complaint: FAST HEART RATE Time Seen by Provider: 03/28/19 18:39 Primary Care Provider: CLAUDIA LUONG MD [Primary Care Provider] - Follow up as needed Mode of Arrival: Ambulatory Information source: Patient Notes: 68-year-old female presented to ED for complaint of chest pain. She states she has A. fib off and on.. She was seen recently for A. fib. She is in A. Flutter with a rate of 137. She is supposed to be following up with her correspondence coordinator but she has not made the appointment yet. She states she supposed to be on metoprolol she took the first dose but she ran out and did not have the second dose. She is on metoprolol 100 mg twice daily. She is alert oriented respirations regular nonlabored. I do not see any orders on her ambulatory orders for her to get 100 mg twice daily. I have greeted and performed a rapid initial assessment of this patient. A comprehensive ED assessment and evaluation of the patient, analysis of test results and completion of medical decision making process will be conducted by an additional ED providers. TRAVEL OUTSIDE OF THE [place] IN LAST 30 DAYS: No - Related Data Allergies/Adverse Reactions: iodine [Iodine] Allergy (Verified 03/28/19 18:37) lisinopril Allergy (Verified 03/28/19 18:37) Past Medical History - Past Medical History Cardiac Medical History: Reports: Hx Atrial Fibrillation, Hx Hypercholesterolemia, Hx Hypertension Pulmonary Medical History: Reports: Hx Bronchitis Neurological Medical History: Reports: Hx Cerebrovascular Accident - cerebral aneurysm Renal/ Medical History: Denies: Hx Peritoneal Dialysis Musculoskeltal Medical History: Reports Hx Musculoskeletal Deformity Psychiatric Medical History: Reports: Hx Depression Past Surgical History: Reports: Hx Appendectomy, Hx Cardiac Surgery - aorta repair, Hx Hysterectomy, Hx Neurologic Surgery - Right-sided craniotomy for cerebral aneurysm clipped in 2008, Hx Orthopedic Surgery - Right ulnar nerve repair at the elbow, Hx Tubal Ligation, Hx Vascular Surgery - 2014 ascending aortic aneurysm repair., Other - about Dec 30. endovascular stent of a descending thoracic psuedoaneursym - Immunizations Immunizations up to date: Yes Hx Diphtheria, Pertussis, Tetanus Vaccination: Yes Doctor's Discharge - Discharge Referrals: CLAUDIA LUONG MD [Primary Care Provider] - Follow up as needed
[2019-03-28] MEDS ORDERED: METOPROLOL TARTRATE 100 MG TABLET PO ONE (18:47)
[2019-03-28] MEDS ORDERED: METOPROLOL TARTRATE 100 MG TABLET ONE (18:55)
[2019-03-28 19:28] LABS: ABSOLUTE BASOPHILS # (AUTO) 0.1 10^3/uL (0.0-0.2); ABSOLUTE EOSINOPHILS # (AUTO) 0.1 10^3/uL (0.0-0.6); ABSOLUTE LYMPHOCYTES (AUTO) 2.3 10^3/uL (0.5-4.7); ABSOLUTE MONOCYTES (AUTO) 0.7 10^3/uL (0.1-1.4); ABSOLUTE NEUT (AUTO) 5.5 10^3/uL (1.7-8.2); BASOPHILS % (AUTO) 0.9 % (0-2); EOSINOPHILS % (AUTO) 0.9 % (0-6); HEMOGLOBIN 13.7 g/dL (12.0-15.5); LYMPHOCYTES % (AUTO) 26.5 % (13-45); MEAN CORPUSCULAR HEMOGLOBIN 31.6 pg (27.0-33.4); MEAN CORPUSCULAR HGB CONC 33.4 g/dL (32.0-36.0); MEAN CORPUSCULAR VOLUME 95 fl (80-97); MONOCYTES % (AUTO) 7.9 % (3-13); PLATELET COUNT 243 10^3/uL (150-450); RED BLOOD COUNT 4.34 10^6/uL (3.72-5.28); RED CELL DISTRIBUTION WIDTH 14.6 % (11.5-14.0); SEGMENTED NEUTROPHILS % (AUTO) 63.8 % (42-78); TOTAL CELLS COUNTED % (AUTO) 100 %; WHITE BLOOD COUNT 8.6 10^3/uL (4.0-10.5)
--- NOTE | 2019-03-28 19:30 | RADIOLOGY REPORT (SQ) ---
EXAM DESCRIPTION: CHEST 2 VIEWS COMPLETED DATE/TIME: 03/28/2019 6:59 pm REASON FOR STUDY: chest pain COMPARISON: Chest films 03/19/2019, 01/05/2017, 09/06/2016, 12/13/2015 CT chest 03/20/2016 EXAM PARAMETERS: NUMBER OF VIEWS: two views TECHNIQUE: Digital Frontal and Lateral radiographic views of the chest acquired. RADIATION DOSE: NA LIMITATIONS: none FINDINGS: LUNGS AND PLEURA: No opacities, masses or pneumothorax. No pleural effusion. MEDIASTINUM AND HILAR STRUCTURES: No hilar enlargement. HEART AND VASCULAR STRUCTURES: Thoracic aortic aneurysm/dissection treated with a stent graft along t he descending thoracic aorta. The aortic arch is prominent, similar compared to previous studies wit hout hardware. Patient does have a sternotomy and clips along the right peritracheal region. No car diomegaly BONES: No acute findings. HARDWARE: None in the chest. OTHER: No other significant finding. IMPRESSION: Previously treated thoracic aortic aneurysm/dissection No acute infiltrates TECHNICAL DOCUMENTATION: JOB ID: [id number] [employer]- All Rights Reserved Reading location - IP/workstation name: [email or web address]
[2019-03-28 19:34] LABS: APPEARANCE,URINE SLIGHTLY-CLOUDY; BILIRUBIN,URINE NEGATIVE (NEGATIVE); COLOR,URINE YELLOW; GLUCOSE, URINE NEGATIVE (NEGATIVE); KETONES,URINE NEGATIVE (NEGATIVE); PROTEIN,URINE 30 mg/dL (NEGATIVE); URINE SPECIFIC GRAVITY 1.016
[2019-03-28] MEDS ORDERED: METOPROLOL TARTRATE 50 MG TABLET PO ONE (19:56)
[2019-03-28] MEDS ORDERED: METOPROLOL TARTRATE PF/INJ 5 MG/5 ML SDV IV ONE (19:56)
--- NOTE | 2019-03-28 19:58 | ER Document Report ---
ED General - General Chief Complaint: Palpitations Stated Complaint: FAST HEART RATE Time Seen by Provider: 03/28/19 18:39 Primary Care Provider: CLAUDIA LUONG MD [Primary Care Provider] - Follow up as needed Mode of Arrival: Ambulatory Notes: 68-year-old lady with intermittent A. fib/flutter on anticoagulation and metoprolol 50 twice a day presents with palpitations "I am in A. fib" started this morning. No changes in meds but did take her last dose of metoprolol this morning. Denies infectious symptoms fever chills chest pain shortness of breath or leg swelling. Recent hospitalization at [facility] "for my heart" but cannot say anything else. TRAVEL OUTSIDE OF THE [place] IN LAST 30 DAYS: No - Related Data Allergies/Adverse Reactions: iodine [Iodine] Allergy (Verified 03/28/19 18:37) lisinopril Allergy (Verified 03/28/19 18:37) Past Medical History - General Information source: Patient - Social History Smoking Status: Current Every Day Smoker Family History: Reviewed & Not Pertinent Patient has suicidal ideation: No Patient has homicidal ideation: No - Past Medical History Cardiac Medical History: Reports: Hx Atrial Fibrillation, Hx Hypercholesterolemia, Hx Hypertension Pulmonary Medical History: Reports: Hx Bronchitis Neurological Medical History: Reports: Hx Cerebrovascular Accident - cerebral aneurysm Renal/ Medical History: Denies: Hx Peritoneal Dialysis Musculoskeletal Medical History: Reports Hx Musculoskeletal Deformity Psychiatric Medical History: Reports: Hx Depression Past Surgical History: Reports: Hx Appendectomy, Hx Cardiac Surgery - aorta repair, Hx Hysterectomy, Hx Neurologic Surgery - Right-sided craniotomy for cerebral aneurysm clipped in 2008, Hx Orthopedic Surgery - Right ulnar nerve repair at the elbow, Hx Tubal Ligation, Hx Vascular Surgery - 2014 ascending aortic aneurysm repair., Other - about Dec 30. endovascular stent of a descending thoracic psuedoaneursym - Immunizations Immunizations up to date: Yes Hx Diphtheria, Pertussis, Tetanus Vaccination: Yes Hx Pneumococcal Vaccination: 12/27/12 Review of Systems - Review of Systems Notes: REVIEW OF SYSTEMS GEN: Denies fever, chills, weight loss ENT: Denies sore throat, nasal discharge, ear pain EYES: Denies blurry vision, eye pain, discharge CV: Palpitations RESP: Denies cough, shortness of breath, wheezing GI: Denies abdominal pain, nausea, vomiting, diarrhea MSK: Denies joint pain/swelling, edema, SKIN: Denies rash, skin lesions LYMPH: Denies swollen glands/lymph nodes NEURO: Denies headache, focal weakness or numbness, dizziness PSYCH: Denies depression, suicidal or homicidal ideation PHYSICAL EXAMINATION General: No acute distress, well-nourished Head: Atraumatic, normocephalic ENT: Mouth normal, oropharynx moist, no exudates or tonsillar enlargement Eyes: Conjunctiva normal, pupils equal, lids normal Neck: No JVD, supple, no guarding CVS: Irregular tachycardia Resp: No resp distress, equal and normal breath sounds bilaterally GI: Nondistended, soft, no tenderness to palpation, no rebound or guarding Ext: No deformities, no edema, normal range of motion in upper and lower ext Back: No CVA or midline TTP Skin: No rash, warm Lymphatic: No lymphadeopathy noted Neuro: Awake, alert. Face symmetric. GCS 15. Physical Exam - Vital signs Vitals: Temp Pulse Resp BP Pulse Ox 98.7 F 135 H 18 159/103 H 100 03/28/19 18:16 03/28/19 18:16 03/28/19 18:16 03/28/19 18:16 03/28/19 18:16 Course - Re-evaluation Re-evalutation: 03/28/19 19:57 Patient presents with mild rapid ventricular response in the setting of paroxysmal A. fib and adequate anticoagulation. No apparent instigating factors other than possible med noncompliance. No signs of sepsis or dehydration. No signs of decompensated CHF. I am going to give her her nighttime dose of oral metoprolol in addition to some IV in order to slow her down check labs and lites rule out ACS and second heart failure, and attempt to discharge. 03/28/19 20:21 Patient's labs are normal except for positive UTI. This could be the factor causing her rapid A. fib. She received p.o. metoprolol and IV metoprolol and heart rate is decreasing. Heart failure and ACS are ruled out. I will discharge her with a repeat prescription for metoprolol without increasing her dose, and antibiotics. I have discussed with the patient there likely diagnosis, aftercare plan, follow-up plans and my usual and customary return precautions. They verbalized understanding of this. 03/28/19 20:54 Heart rate 90 is stable for discharge - Vital Signs Vital signs: Temp Pulse Resp BP Pulse Ox 98.7 F 135 H 22 H 150/95 H 98 03/28/19 18:16 03/28/19 18:16 03/28/19 20:01 03/28/19 20:01 03/28/19 19:06 - Laboratory Result Diagrams: 03/28/19 19:08 03/28/19 19:08 Laboratory results interpreted by me: 03/28/19 03/28/19 03/28/19 19:08 19:08 19:08 RDW 14.6 H Est GFR (MDRD) Non-Af 52 L Urine Protein 30 H Urine Urobilinogen 2.0 H Leukocyte Esterase Rfl MODERATE H Urine Ascorbic Acid 40 H - Diagnostic Test Radiology reviewed: Image reviewed, Reports reviewed - EKG Interpretation by Me EKG shows normal: Sinus rhythm Rate: Tachycardia Rhythm: A.Fib Critical Care Note - Critical Care Note Total time excluding time spent on procedures (mins): 32 Comments: The above patient is critically ill. Not including procedures, but including direct re-evaluations, speaking with patient and/or consultants, interpreting results, and documenting, I spent the total amount of minute listed listed above on critical care time Discharge - Discharge Clinical Impression: Cystitis without hematuria Condition: Good Disposition: HOME, SELF-CARE Instructions: Beta Blockers ([facility]), Palpitations (Irregular or Rapid Heartrate) ([facility]) Prescriptions: Cefuroxime Axetil [Ceftin 500 mg Tablet] 1 tab PO BID #20 tablet Metoprolol Tartrate [Lopressor 50 mg Tablet] 50 mg PO Q12H #60 tablet Referrals: CLAUDIA LUONG MD [Primary Care Provider] - Follow up as needed
[2019-03-28 20:04] LABS: ALBUMIN 4.5 g/dL (3.5-5.0); ALKALINE PHOSPHATASE 77 U/L (38-126); ANION GAP 12 (5-19); ASPARTATE AMINO TRANSFERASE 22 U/L (14-36); BILIRUBIN,DIRECT 0.3 mg/dL (0.0-0.4); BILIRUBIN,TOTAL 0.7 mg/dL (0.2-1.3); BLOOD UREA NITROGEN 18 mg/dL (7-20); CALCIUM 9.8 mg/dL (8.4-10.2); CARBON DIOXIDE 25 mmol/L (22-30); CHLORIDE 107 mmol/L (98-107); GLUCOSE 95 mg/dL (75-110); POTASSIUM 4.2 mmol/L (3.6-5.0)
[2019-03-28] MEDS ORDERED: CEFUROXIME 500 MG TABLET PO ONE (20:20)
[2019-03-28 21:03] VITALS: BP 164/93
--- NOTE | 2019-03-29 14:21 | EKG REPORT ---
SEVERITY:- ABNORMAL ECG - ATRIAL FLUTTER, A-RATE 283 NONSPECIFIC REPOL ABNORMALITY, DIFFUSE LEADS PROLONGED QT INTERVAL : Confirmed by: Forrest Chapman 29-Mar-2019 14:20:17
== END 2019-03-28 21:22 | disposition home or self-care (01) ==
LOC: ER 18:15
DX: N30.90 Cystitis, unspecified without hematuria (principal); R00.0 Tachycardia, unspecified; F17.200 Nicotine dependence, unspecified, uncomplicated; I10 Essential (primary) hypertension; I48.91 Unspecified atrial fibrillation; Z79.01 Long term (current) use of anticoagulants; Z79.899 Other long term (current) drug therapy
CPT/HCPCS: 93005; 36415; 85025; 80053; 81001; 84484; 71046; 93010; A9270 ×2; J3490; 96374; 99291

== ENCOUNTER 2019-11-08 06:46 | Emergency (ER) | payer MEDICARE, OTHER ==
--- NOTE | 2019-11-08 07:51 | RADIOLOGY REPORT (SQ) ---
CLINICAL HISTORY: fall COMPARISON: None. TECHNIQUE: CT CERVICAL SPINE WITHOUT IV CONTRAST on 11/08/2019 12:00 AM CDT This exam was performed according to our departmental dose-optimization program, which includes automated exposure control, adjustment of the mA and/or kV according to patient size and/or use of iterative reconstruction technique. FINDINGS: There is an old fracture of the C7 spinous process posteriorly. Alignment is anatomic. Disc spaces are maintained. There is incidental enlargement of the aortic arch measuring up to 4.8 cm. IMPRESSION: No acute fracture or subluxation. Aortic arch dilatation.
--- NOTE | 2019-11-08 07:52 | RADIOLOGY REPORT (SQ) ---
CLINICAL HISTORY: fall COMPARISON: None. TECHNIQUE: CT HEAD WITHOUT IV CONTRAST on 11/08/2019 12:00 AM CDT This exam was performed according to our departmental dose-optimization program, which includes automated exposure control, adjustment of the mA and/or kV according to patient size and/or use of iterative reconstruction technique. FINDINGS: There is no acute hemorrhage, mass effect or midline shift. There is encephalomalacia within the right frontal lobe. There is a metallic density in the expected location of the anterior communicating artery, which may represent aneurysm coiling. There is no hydrocephalus. There is no significant volume loss for age. The calvarium is intact. Orbits and globes are unremarkable. The paranasal sinuses are clear. Mastoid air cells are clear. IMPRESSION: No acute hemorrhage.
--- NOTE | 2019-11-08 08:17 | ER Document Report ---
ED General - General Chief Complaint: Fall Stated Complaint: FALL/LEG PAIN Time Seen by Provider: 11/08/19 07:22 Primary Care Provider: CLAUDIA LUONG MD [Primary Care Provider] - Follow up as needed TRAVEL OUTSIDE OF THE [place] IN LAST 30 DAYS: No - HPI Notes: Chief complaint: Fall with head injury History of present illness: 69-year-old female followed by Dr. Luong with past history of chronic atrial fibrillation and old CVA regularly taking Pradaxa who is seen now for fall with associated blow to the head. Patient says that since she had her stroke 11 years ago she intermittently uses a Rollator for ambulation. Patient had been traveling with her family to [place] and was returning home riding in the car overnight. About 2:00 this morning she went into a restroom at a gas station not using her Rollator. She said that her legs suddenly felt weak and she collapsed striking any back of her head against a wall. She may have had momentary loss of consciousness. She comes in now with some mild dull headache and also complaining of weakness in both legs. Mild nausea without vomiting. No impairment of eyesight, sensation speech or swallowing. Patient has mild pain of both hips since a fall and also abraded her right elbow. She denies any chest pain or abdominal pain. - Related Data Allergies/Adverse Reactions: iodine [Iodine] Allergy (Verified 03/28/19 18:37) lisinopril Allergy (Verified 03/28/19 18:37) Past Medical History - General Information source: Patient, [facility] Records - Social History Smoking Status: Never Smoker Frequency of alcohol use: None Drug Abuse: None Family History: Reviewed & Not Pertinent - Past Medical History Cardiac Medical History: Reports: Hx Atrial Fibrillation, Hx Hypercholesterolemia, Hx Hypertension Pulmonary Medical History: Reports: Hx Bronchitis Neurological Medical History: Reports: Hx Cerebrovascular Accident - cerebral aneurysm Renal/ Medical History: Denies: Hx Peritoneal Dialysis Musculoskeletal Medical History: Reports Hx Musculoskeletal Deformity Psychiatric Medical History: Reports: Hx Depression Past Surgical History: Reports: Hx Appendectomy, Hx Cardiac Surgery - aorta repair, Hx Hysterectomy, Hx Neurologic Surgery - Right-sided craniotomy for cerebral aneurysm clipped in 2008, Hx Orthopedic Surgery - Right ulnar nerve repair at the elbow, Hx Tubal Ligation, Hx Vascular Surgery - 2014 ascending aortic aneurysm repair., Other - about Dec 30. endovascular stent of a descending thoracic psuedoaneursym - Immunizations Immunizations up to date: Yes Hx Diphtheria, Pertussis, Tetanus Vaccination: Yes Hx Pneumococcal Vaccination: 12/27/12 Review of Systems - Review of Systems Notes: Constitutional: Negative for fever. HENT: Negative for sore throat. Eyes: Negative for visual changes. Cardiovascular: Negative for chest pain. Respiratory: Negative for shortness of breath. Gastrointestinal: Negative for abdominal pain, vomiting or diarrhea. Genitourinary: Negative for dysuria. Musculoskeletal: Negative for back pain. Skin: Negative for rash. Neurological: As per HPI. 10 point ROS negative except as marked above and in HPI. Physical Exam - Vital signs Vitals: Temp Pulse Resp BP Pulse Ox 98.5 F 57 L 16 152/88 H 99 11/08/19 06:54 11/08/19 06:54 11/08/19 06:54 11/08/19 06:54 11/08/19 06:54 - Notes Notes: GENERAL: Elderly female appearing in no acute distress. SKIN: Good turgor no rashes. HEAD: Normocephalic. Mild tenderness left occipital area without visible swelling or abrasion. EYES: PERRLA. EOMI. Conjunctivae and sclerae clear. EARS: CANALS AND TMS CLEAR. NOSE: CLEAR. MOUTH: Moist mucosa. Good dentition. No stridor or edema. No drooling. NECK: Supple. No masses or thyromegaly. No adenopathy. Carotids 2+ without bruits. No JVD. BACK: Symmetrical without tenderness. CHEST: Respirations unlabored. Breath sounds clear and symmetrical. HEART: Irregularly irregular rhythm. No murmur gallop or rub. ABDOMEN: Soft nontender without masses, organomegaly or rebound. Bowel sounds n ormally active. No bruits. GENITALIA: Deferred. EXTREMITIES: Minimal tenderness over both hips. No abnormal shortening or rotation of lower extremities. Superficial abrasion posterior aspect of right elbow. Normal range of motion of the right elbow. No edema. No calf tenderness. Cap refill less than 1.5 seconds. Dorsalis pedis and posterior tibial pulses 3+ and symmetrical. NEUROLOGICAL: GCS 15. Alert and oriented x3. Fluent speech. Cranial nerves II through XII intact. Sensory, motor and cerebellar normal. Normal tone. PSYCHIATRIC: Appropriate affect. Course - Re-evaluation Re-evalutation: 11/08/19 13:03 Elderly lady had with prior stroke taking anticoagulant had fallen and restroom at a service station while traveling. Head CT and C-spine CT were normal. There was no definite loss of consciousness. She complained of leg weakness. Status evaluation here showed primary problem to be a urinary tract infection. She has been given initial therapy with antibiotics and appears stable for outpatient follow-up with PMD. - Vital Signs Vital signs: Temp Pulse Resp BP Pulse Ox 98.5 F 57 L 16 152/88 H 99 11/08/19 07:47 11/08/19 06:54 11/08/19 06:54 11/08/19 06:54 11/08/19 06:54 - Laboratory Result Diagrams: 11/08/19 10:20 11/08/19 10:20 Laboratory results interpreted by me: 11/08/19 11/08/19 11/08/19 08:50 10:20 10:20 RDW 15.3 H Plt Count 133 L APTT 36.9 H Potassium BUN Creatinine Est GFR ( Amer) Est GFR (MDRD) Non-Af Urine Protein 30 H Urine Urobilinogen 2.0 H Leukocyte Esterase Rfl MODERATE H 11/08/19 10:20 RDW Plt Count APTT Potassium 3.5 L BUN 27 H Creatinine 1.45 H Est GFR ( Amer) 43 L Est GFR (MDRD) Non-Af 36 L Urine Protein Urine Urobilinogen Leukocyte Esterase Rfl - EKG Interpretation by Me Additional EKG results interpreted by me: 11/08/19 08:38 Twelve-lead EKG reviewed by me contemporaneously: 0826 hrs. Indication for study: Near syncope Rhythm: Normal sinus with first-degree AV block Rate: 65 Intervals: Borderline QT prolongation with QTC of 491 ms. FL interval 220 ms. QRS axis: Normal +[address]/T wave changes: None Comparison with prior tracing March 28, 2019 shows conversion to normal sinus rhythm from previous atrial fibrillation. Interpretation: Normal sinus rhythm with first-degree AV block and borderline QT prolongation Discharge - Discharge Clinical Impression: Fall, Scalp contusion, Multiple abrasions Urinary tract infection Qualifiers: Urinary tract infection type: site unspecified Hematuria presence: without hematuria Qualified Code(s): N39.0 - Urinary tract infection, site not specified Condition: Stable Disposition: HOME, SELF-CARE Prescriptions: Nitrofurantoin Monohyd/M-Cryst [Macrobid 100 mg Capsule] 100 mg PO BID 10 Days #20 cap Referrals: CLAUDIA LUONG MD [Primary Care Provider] - Follow up as needed
[2019-11-08 09:18] LABS: APPEARANCE,URINE SLIGHTLY-CLOUDY; BILIRUBIN,URINE NEGATIVE (NEGATIVE); COLOR,URINE AMBER; GLUCOSE, URINE NEGATIVE (NEGATIVE); KETONES,URINE NEGATIVE (NEGATIVE); PROTEIN,URINE 30 mg/dL (NEGATIVE)
--- NOTE | 2019-11-08 09:33 | EKG REPORT ---
SEVERITY:- ABNORMAL ECG - SINUS RHYTHM FIRST DEGREE AV BLOCK PROBABLE LEFT ATRIAL ABNORMALITY LEFT VENTRICULAR HYPERTROPHY BORDERLINE PROLONGED QT INTERVAL : Confirmed by: Rafael Javier MD 08-Nov-2019 09:32:57
[2019-11-08 10:34] LABS: ABSOLUTE EOSINOPHILS # (AUTO) 0.1 10^3/uL (0.0-0.6); ABSOLUTE LYMPHOCYTES (AUTO) 1.5 10^3/uL (0.5-4.7); ABSOLUTE MONOCYTES (AUTO) 0.6 10^3/uL (0.1-1.4); ABSOLUTE NEUT (AUTO) 5.6 10^3/uL (1.7-8.2); BASOPHILS % (AUTO) 0.5 % (0-2); EOSINOPHILS % (AUTO) 0.8 % (0-6); HEMATOCRIT 39.5 % (36.0-47.0); HEMOGLOBIN 13.6 g/dL (12.0-15.5); MEAN CORPUSCULAR HGB CONC 34.6 g/dL (32.0-36.0); MEAN CORPUSCULAR VOLUME 93 fl (80-97); MONOCYTES % (AUTO) 7.7 % (3-13); PLATELET COUNT 133 10^3/uL (150-450); RED BLOOD COUNT 4.27 10^6/uL (3.72-5.28); RED CELL DISTRIBUTION WIDTH 15.3 % (11.5-14.0); TOTAL CELLS COUNTED % (AUTO) 100 %; WHITE BLOOD COUNT 7.8 10^3/uL (4.0-10.5)
--- NOTE | 2019-11-08 10:37 | RADIOLOGY REPORT (SQ) ---
EXAM DESCRIPTION: CHEST 2 VIEWS IMAGES COMPLETED DATE/TIME: 11/08/2019 10:20 am REASON FOR STUDY: fall COMPARISON: PA and lateral views of the chest from 03/20/2019. EXAM PARAMETERS: NUMBER OF VIEWS: Two views. TECHNIQUE: PA and lateral views of the chest were obtained. RADIATION DOSE: NA LIMITATIONS: None. FINDINGS: LUNGS AND PLEURA: No consolidation, pleural effusion or pneumothorax. MEDIASTINUM AND HILAR STRUCTURES: Stable mediastinal and hilar contours. HEART AND VASCULAR STRUCTURES: Stable enlarged cardiac silhouette. BONES: No acute findings. HARDWARE: Descending thoracic aortic stent graft, sternotomy wires, epicardial leads and mediastinal surgical clips. OTHER: No other finding. IMPRESSION: No acute cardiopulmonary process. TECHNICAL DOCUMENTATION: JOB ID: [id number] 2010 [employer]- All Rights Reserved Reading location - IP/workstation name: [email or web address]
--- NOTE | 2019-11-08 10:39 | RADIOLOGY REPORT (SQ) ---
EXAM DESCRIPTION: PELVIS AP IMAGES COMPLETED DATE/TIME: 11/08/2019 10:20 am REASON FOR STUDY: fall COMPARISON: None. NUMBER OF VIEWS: One view TECHNIQUE: An AP view of the pelvis was obtained. LIMITATIONS: None. FINDINGS: MINERALIZATION: Normal. HIPS: No acute fracture or dislocation. PELVIS AND SACRUM: The sacrum is obscured by overlying bowel. PUBIS AND ISCHIUM: The ilioischial and iliopectineal lines are intact. There is no diastasis of the pubic symphysis. LOWER LUMBAR SPINE: Degenerative spondylosis of the lumbar spine. SOFT TISSUES: No findings. OTHER: No other finding. IMPRESSION: No acute osseous abnormality of the pelvis. COMMENT: Pelvic fractures are often occult on plain radiographs. If strong clinical suspicion for f racture, recommend CT or MR. TECHNICAL DOCUMENTATION: JOB ID: [id number] 2010 [employer]- All Rights Reserved Reading location - IP/workstation name: [email or web address]
[2019-11-08 10:41] LABS: INTERNATIONAL RATION (INR) 1.07; PROTHROMBIN TIME 14.1 SEC (11.4-15.4)
--- NOTE | 2019-11-08 10:41 | RADIOLOGY REPORT (SQ) ---
EXAM DESCRIPTION: ELBOW RIGHT AP/LAT IMAGES COMPLETED DATE/TIME: 11/08/2019 10:20 am REASON FOR STUDY: fall COMPARISON: None. NUMBER OF VIEWS: Two views. TECHNIQUE: AP and lateral radiographic images acquired of the right elbow. LIMITATIONS: None. FINDINGS: MINERALIZATION: Normal. BONES: No acute fracture or dislocation. JOINT: No effusion. SOFT TISSUES: No soft tissue swelling. OTHER: The mild irregularity of the medial epicondyle could represent the sequela of medial epicondy litis. IMPRESSION: No acute osseous abnormality of the right elbow. TECHNICAL DOCUMENTATION: JOB ID: [id number] [employer]- All Rights Reserved Reading location - IP/workstation name: [email or web address]
[2019-11-08 10:42] LABS: PARTIAL THROMBOPLASTIN TIME 36.9 SEC (23.5-35.8)
[2019-11-08 11:01] LABS: ALBUMIN 4.5 g/dL (3.5-5.0); ALKALINE PHOSPHATASE 86 U/L (38-126); ANION GAP 11 (5-19); ASPARTATE AMINO TRANSFERASE 21 U/L (14-36); BILIRUBIN,DIRECT 0.3 mg/dL (0.0-0.4); BILIRUBIN,TOTAL 0.8 mg/dL (0.2-1.3); BLOOD UREA NITROGEN 27 mg/dL (7-20); CALCIUM 9.8 mg/dL (8.4-10.2); CARBON DIOXIDE 27 mmol/L (22-30); CHLORIDE 106 mmol/L (98-107); GLUCOSE 97 mg/dL (75-110); POTASSIUM 3.5 mmol/L (3.6-5.0); TOTAL PROTEIN 7.6 g/dL (6.3-8.2)
[2019-11-08] MEDS ORDERED: CEFTRIAXONE 1 GM/D5W RTU 1 GM/50 ML RTUPB IV ONE (11:21)
[2019-11-08] MEDS ORDERED: CEFTRIAXONE INJ 1000 MG VIAL IM ONE (12:01)
[2019-11-08] MEDS ORDERED: LIDOCAINE 1% INJ (10 MG/ML) 10 ML MDV INJ ONE (12:02)
[2019-11-08 13:18] VITALS: BP 194/65
== END 2019-11-08 13:19 | disposition home or self-care (01) ==
LOC: ER 06:46
DX: S00.03XA Contusion of scalp, initial encounter (principal); S50.311A Abrasion of right elbow, initial encounter; N39.0 Urinary tract infection, site not specified; R51 Headache; M62.81 Muscle weakness (generalized); R55 Syncope and collapse; R11.0 Nausea; M25.551 Pain in right hip; M25.552 Pain in left hip; W19.XXXA Unspecified fall, initial encounter; Z88.8 Allergy status to other drugs, medicaments and biological substances; I10 Essential (primary) hypertension
CPT/HCPCS: 93005; 99285; 96372; 36415; 87040; 83735; 85025; 85610; 85730; 80053; 81001; 71046; 73070; 72170; 70450; 72125; 93010; J0696